=== PATIENT | male | born 1930 | race Caucasian/White ===

== ENCOUNTER 2018-03-30 11:21 | Inpatient (IN) | payer MEDICARE, MEDICAID ==
[2018-03-30 12:10] LABS: Bilirubin Negative (Negative); Blood, Urine Large (Negative); Clarity CLOUDY (Clear); Glucose, Urine (Dipstick) Negative (Negative); Leukocyte Negative (Negative); Nitrite Negative (Negative); Protein, Urine (Dipstick) 30 mg/dL (Neg-Trace); Specific Gravity, Urine 1.015 (1.002-1.036); Urobilinogen 0.2 mg/dL (0.2-1.0)
[2018-03-30 12:12] LABS: Bacteria/HPF None Seen HPF (None Seen); Hyaline Casts/LPF 0-3 HYALINE CAST LPF (0-3 Hyaline); Pathc Cast-AUWi Flag 0.72 (0-2.49); RBC/HPF GREATER THAN 50-TNTC HPF (0-3); Squamous Epithelial 0-3 HPF (0-3); WBC/HPF 0-3 HPF (0-3)
[2018-03-30 12:17] LABS: #Eosinphils 0.1 thou/uL (0.0-0.7); #Lymphocytes 0.8 thou/uL (1.20-3.40); #Neutrophils 8.1 thou/uL (1.40-6.50); %Basophils 0.2 % (0.0-1.0); %Lymphocytes 8.2 % (21.0-51.0); %Monocytes 10.1 % (0.0-10.0); %Neutrophils 80.4 % (42.0-75.0); Hemoglobin 14.9 g/dL (14.0-18.0); Mean Corpuscular HGB CONC 32.6 g/dL (32.0-36.0); Mean Corpuscular Volume 94.8 fL (78.0-98.0); Mean Platelet Volume 8.4 fL (7.4-10.4); Platelet Count 110 thou/uL (130-400); RBC Distribution Width 11.9 % (11.5-14.5); Red Blood Cell (RBC) Count 4.81 mill/uL (4.70-6.10)
[2018-03-30 12:32] LABS: ALT (SGPT) 18 U/L (8-55); AST (SGOT) 22 U/L (5-34); Albumin 3.5 g/dL (3.4-4.8); Alkaline Phosphatase 189 U/L (40-150); Anion Gap 16 mmol/L (10-20); BUN (Urea Nitrogen) 52 mg/dL (8.4-25.7); Bilirubin, Total 0.7 mg/dL (0.2-1.2); Calc. Creatinine Clearance 0 mL/min (70-130); Calcium 9.1 mg/dL (7.8-10.44); Carbon Dioxide 20 mmol/L (23-31); Chloride 103 mmol/L (98-107); Estimated GFR-MDRD 27; Glucose 226 mg/dL (83-110); Potassium 4.6 mmol/L (3.5-5.1); Protein, Total 6.5 g/dL (5.8-8.1); Sodium 134 mmol/L (136-145)
[2018-03-30] MEDS ORDERED: Acetaminophen 325 MG TAB PO PRN (15:09)
[2018-03-30] MEDS ORDERED: Dextrose 5% in Water 1,000 ML IV PRN (15:24)
[2018-03-30] MEDS ORDERED: HumaLOG 300 UNITS/3 ML VIAL SC PRN (15:24)
[2018-03-30] MEDS ORDERED: Dextrose 50% Abboject 50 ML SYRINGE SLOW IVP PRN (15:24)
--- NOTE | 2018-03-30 15:32 | ULT ---
RENAL ULTRASOUND: INDICATION: Urinary retention, acute kidney insufficiency. FINDINGS: Bilateral extrarenal pelvis is seen. There is a moderate-sized cyst of the mid left kidney, approxim ately 4 cm in diameter. An additional hypoechoic focus measuring between 1.5 and 2 cm at the left lo wer pole is demonstrated. Urinary bladder is decompressed with an indwelling catheter. IMPRESSION: 1. Bilateral extrarenal pelvis. 2. Left renal cyst. 3. Decompressed urinary bladder. POS: ISHAANK
[2018-03-30] MEDS ORDERED: Ondansetron ODT 4 MG TAB SL PRN (16:21)
[2018-03-30] MEDS ORDERED: Ondansetron PF 4 MG/2 ML Vial IVP PRN (16:21)
[2018-03-30] MEDS: Sodium Chloride 0.9% 1,000 ML IV SCH (17:07)
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
[2018-03-31] MEDS: Sodium Chloride 0.9% 1,000 ML IV SCH ×3 (03:17→20:12)
[2018-03-31 06:14] LABS: #Eosinphils 0.1 thou/uL (0.0-0.7); #Monocytes 0.9 thou/uL (0.11-0.59); #Neutrophils 5.4 thou/uL (1.40-6.50); %Basophils 0.1 % (0.0-1.0); %Eosinophils 1.8 % (0.0-10.0); %Lymphocytes 13.3 % (21.0-51.0); %Monocytes 12.3 % (0.0-10.0); %Neutrophils 72.5 % (42.0-75.0); Hemoglobin 13.4 g/dL (14.0-18.0); Mean Corpuscular HGB CONC 33.7 g/dL (32.0-36.0); Mean Corpuscular Hemoglobin 31.2 pg (27.0-31.0); Mean Corpuscular Volume 92.4 fL (78.0-98.0); Mean Platelet Volume 8.5 fL (7.4-10.4); Platelet Count 120 thou/uL (130-400); RBC Distribution Width 11.9 % (11.5-14.5); White Blood Cell (WBC) Count 7.5 thou/uL (4.8-10.8)
[2018-03-31 06:39] LABS: ALT (SGPT) 14 U/L (8-55); AST (SGOT) 17 U/L (5-34); Albumin 2.9 g/dL (3.4-4.8); Alkaline Phosphatase 144 U/L (40-150); Anion Gap 12 mmol/L (10-20); BUN (Urea Nitrogen) 26 mg/dL (8.4-25.7); Bilirubin, Total 0.7 mg/dL (0.2-1.2); Calc. Creatinine Clearance 56 mL/min (70-130); Calcium 8.1 mg/dL (7.8-10.44); Carbon Dioxide 23 mmol/L (23-31); Chloride 108 mmol/L (98-107); Estimated GFR-MDRD 72; Globulin 2.2 g/dL (2.4-3.5); Glucose 129 mg/dL (83-110); Potassium 3.8 mmol/L (3.5-5.1); Protein, Total 5.1 g/dL (5.8-8.1); Sodium 139 mmol/L (136-145)
[2018-03-31] MEDS: Tamsulosin HCl 0.4 MG CAP PO SCH (08:21)
--- NOTE | 2018-03-31 13:19 | PDOC.PN ---
- Subjective Encounter Start Date: 03/31/18 Encounter Start Time: 10:40 Non-verbal. - Objective Resuscitation Status - Order Detail: 03/30/18 15:09 Resuscitation Status Routine Resuscitation Status: FULL: Full Resuscitation MAR Reviewed: Yes Vital Signs & Weight: Vital Signs (12 hours) Temp Pulse Resp BP BP Pulse Ox 03/31/18 11:00 97.7 F 50 L 18 114/64 94 L 03/31/18 08:00 94 L 03/31/18 07:27 98.4 F 16 129/62 94 L 03/31/18 04:32 98.4 F 51 L 20 133/67 96 Weight Weight 166 lb 3.2 oz I&O: 03/30/18 03/31/18 04/01/18 06:59 06:59 06:59 Intake Total 1297 Output Total 1999 Balance -703 Result Diagrams: 03/31/18 05:07 03/31/18 05:07 Additional Labs: Accuchecks 03/31/18 03/31/18 03/30/18 11:15 04:29 19:17 POC Glucose 176 H 115 H 164 H 03/30/18 18:21 POC Glucose 139 H Phys Exam - Physical Examination Constitutional: NAD Very pleasant, profound dementia. Non-verbal. Respiratory: no wheezing, no rales, no rhonchi, clear to auscultation bilateral Cardiovascular: RRR, no significant murmur Gastrointestinal: soft, non-tender, no distention, positive bowel sounds Musculoskeletal: no edema Neurological: non-focal Skin: normal turgor Dx/Plan (1) Urinary retention Code(s): R33.9 - RETENTION OF URINE, UNSPECIFIED Status: Acute Comment: Relieved with Cheung. >2 L of urine evacuated with catheter placement. Prostate not enlarged on exam in ED. Urine did not appear infected. Will consult Urology. Talked to Urology. Will need Cheung for a couple of weeks. (2) Abdominal pain Code(s): R10.9 - UNSPECIFIED ABDOMINAL PAIN Status: Resolved Comment: Secondary to bladder distention. Resolved. (3) Acute renal failure Status: Acute Comment: Secondary to ROJAS and obstsructive uropathy. Improved with drainage of the bladder and fluids. Recheck in a.m. (4) Dementia Code(s): F03.90 - UNSPECIFIED DEMENTIA WITHOUT BEHAVIORAL DISTURBANCE Status: Chronic (5) Hypertension Code(s): I10 - ESSENTIAL (PRIMARY) HYPERTENSION Status: Acute Comment: Carries this diagnosis, but is not on treatment. BP improved with relief of the urine retention. - Plan * above
[2018-03-31] MEDS ORDERED: Sodium Chloride 0.9% 1,000 ML IV SCH (20:33)
--- NOTE | 2018-03-31 21:41 | PRG ---
DATE OF SERVICE: 03/31/2018 SUBJECTIVE: The patient was seen and examined, seems to be doing much better. Noted with the following. OBJECTIVE: VITAL SIGNS: Afebrile, temperature 98.2, pulse 60, respiratory rate of 12, O2 saturation of 93% to 96% with a blood pressure of 162/57. HEENT: Examination is unremarkable. Moist oral mucosa. NECK: Supple. No conjunctival injection or icterus. CARDIOVASCULAR SYSTEM: First and second heart sounds were heard. RESPIRATORY SYSTEM: Clear to auscultation. DIGESTIVE SYSTEM: Reviewed. Benign abdomen with positive bowel sounds. EXTREMITIES: No peripheral edema. SKIN: No new gross rash. LYMPHATICS: No peripheral lymphadenopathy. LABORATORY INVESTIGATION: Showed a creatinine down to 0.9, now with BUN of 26. IMPRESSION: 1. Acute kidney injury in the context of obstructive uropathy, much improved, status post relieve of obstruction. 2. Further management will be dependent on the clinical course. 3. We will deescalate IV fluids. At this point, I am possibly discontinuing by tomorrow. Job ID: [id number]
--- NOTE | 2018-03-31 23:23 | CON ---
DATE OF CONSULTATION: 03/31/2018 REASON FOR CONSULTATION: Urinary retention. HISTORY OF PRESENT ILLNESS: Mr. Rice is an 88-year-old gentleman admitted to the hospital on 03/30/2018 for abdominal. The patient was noted to be in urinary retention. A Tinoco catheter was placed. He had 2250 mL of urine output after catheter placement. The abdominal pain resolved after placement of the Tinoco catheter. The patient is unable to give significant history because of dementia. All subsequent obtained from chart PAST MEDICAL HISTORY: Includes hypertension, abnormal heart rhythm, osteoarthritis, and chronic ischemic heart disease (all obtained from chart). PAST SURGICAL HISTORY: Pacemaker. SOCIAL HISTORY: The patient lives at a nursing facility and no known family contact has been reachable. FAMILY HISTORY: Unobtainable. REVIEW OF SYSTEMS: Unobtainable. CURRENT MEDICATIONS: 1. Mucinex. 2. Tylenol p.r.n. ALLERGIES: NO KNOWN DRUG ALLERGIES. PHYSICAL EXAMINATION: GENERAL: He is awake and alert. He is in no distress at this time. The patient appears younger than his stated age. VITAL SIGNS: Blood pressure 148/82, pulse 82, respiratory rate 16. HEENT: Normocephalic, atraumatic. NECK: Supple. No masses. CHEST: Clear to auscultation. CARDIOVASCULAR: Regular rate and rhythm. ABDOMEN: Soft, nontender. No palpable masses. LABORATORY DATA: On admission, creatinine 2.3. IMPRESSION: This patient has urinary retention diagnosed during work up of abdominal pain. Noted to have a bladder of over 2 L. He will need at least a week's worth of bladder decompression before voiding trial. He has been started on Flomax. I anticipate his creatinine will return to normal with the Tinoco drainage. As far as detention treatment, the patient certainly is not bothered by his Tinoco catheter and this is an option for him if retention recurs. If he fails to resume voiding after a period of bladder decompression and flomax, surgical therapy is an option though the patient is not able to give consent and attempts to communicate with any family has been unsuccesful up to this point. RECOMMENDATIONS: 1. Tinoco to gravity for at least 1 week. 2. Voiding trial in >1 week - this can be done at the facility - replace the tinoco if patient not able tovoid within 8 hours.. 3. Agree with Flomax. Job ID: [id number] [facility]
[2018-04-01 08:06] LABS: ALT (SGPT) 13 U/L (8-55); AST (SGOT) 18 U/L (5-34); Albumin 2.8 g/dL (3.4-4.8); Alkaline Phosphatase 134 U/L (40-150); Anion Gap 10 mmol/L (10-20); BUN (Urea Nitrogen) 16 mg/dL (8.4-25.7); Bilirubin, Total 0.7 mg/dL (0.2-1.2); Calc. Creatinine Clearance 68 mL/min (70-130); Calcium 8.1 mg/dL (7.8-10.44); Carbon Dioxide 23 mmol/L (23-31); Chloride 110 mmol/L (98-107); Estimated GFR-MDRD 89; Globulin 2.2 g/dL (2.4-3.5); Glucose 128 mg/dL (83-110); Potassium 3.7 mmol/L (3.5-5.1); Sodium 139 mmol/L (136-145)
[2018-04-01] MEDS: Tamsulosin HCl 0.4 MG CAP PO SCH (08:24)
[2018-04-01 08:46] LABS: INR-International Normal Ratio 1.1; PTT 32.9 SEC (22.9-36.1); Prothrombin Time 14.6 SEC (12.0-14.7)
[2018-04-01 11:34] VITALS: BP 150/68; TEMP 97.8
--- NOTE | 2018-04-01 21:17 | CON ---
DATE OF CONSULTATION: CONSULTING PHYSICIAN: Kiarra Goodwin MD REQUESTING PHYSICIAN: ER physician. REASON FOR CONSULTATION: Acute kidney injury as well as urinary retention. IMPRESSION: 1. Acute on chronic kidney disease, this is likely cause because of urinary retention. 2. Obstructive uropathy. The patient may benefit from urologic workup and evaluation. PLAN: 1. Cheung decompression of the bladder, but we will keep an eye on this patient as this may lead to hematuria if not controlled. 2. The patient may benefit from relatively hypotonic fluid but for now, given the sodium level of 134, we will continue with current IV fluid resuscitation. 3. Renally dose medications and avoid potentially nephrotoxic agents. HISTORY OF PRESENT ILLNESS: An 88-year-old gentleman who was sent to us with abdominal discomfort. The patient was evaluated and noted to have significant urinary retention, deployment of Cheung catheter, 2 L of bloody urine was noted. Otherwise, the patient denies any other symptoms. PAST MEDICAL HISTORY: Significant for Alzheimer disease and dementia. MEDICATIONS: Medications were reviewed and as documented on [facility]. I could not get much of any history from this patient. REVIEW OF SYSTEMS: Highly limited. FAMILY HISTORY: Could not be obtained. SOCIAL HISTORY: No alcohol, no illicit drug use. ALLERGIES: NO KNOWN DRUG ALLERGIES. PHYSICAL EXAMINATION: noted to be alert. No lateralizing signs. LYMPHATICS: No peripheral lymphadenopathy. VITAL SIGNS: Reveals a blood pressure of 159/87, pulse , respiratory rate of 16, O2 saturations of SUMMARY: This is an 88-year-old gentleman who was brought in here with abdominal discomfort, noted with significant obstructive uropathy. Thank you for this consultation. We will follow with you. Job ID: [id number]
--- NOTE | 2018-04-03 11:42 | DIS ---
DATE OF ADMISSION: 03/30/2018 DATE OF DISCHARGE: 04/01/2018 DISCHARGE DIAGNOSES: 1. Urinary retention. 2. Acute renal failure. 3. Abdominal pain. 4. Dementia. 5. Hypertension. 6. Hyperglycemia. HISTORY OF PRESENT ILLNESS: The patient is an 88-year-old male with a history of significant dementia to the degree that he is generally nonverbal, but very pleasant. The patient lives in a nursing facility where he was noted to have abdominal pain and been found to have significant right lower quadrant abdominal pain and tenderness and distention. He was subsequently sent to the emergency department. In the emergency department, the patient was noted to have distended bladder and a Cheung catheter was placed. At that time, 2250 mL of urine was evacuated over a couple of hours. The patient's workup also included elevation in his BUN and creatinine at 52 and 2.3, which were above the patient's normal baseline. He also had hyperglycemia at 226. The patient was admitted to the hospital with some IV fluids and the Cheung was kept in place. By the following day, his BUN and creatinine had decreased to 26 and 0.99, and his blood sugars had come down to relatively normal numbers. On the subsequent day, BUN was 16 and creatinine was 0.82, and his blood sugars down to 119. He was seen in consultation by Nephrology and Urology. The urologist felt that given the severe nature of the bladder distention, the patient needed to keep the Cheung catheter in for at least 1 week. The patient appeared to be feeling well, eating well, and at his baseline, and was felt to be stable for discharge. PHYSICAL EXAMINATION: VITAL SIGNS: On the day of discharge, temperature is 97.8, pulse 51, respirations 18, O2 saturation 93% on room air, BP 150/68. GENERAL: The patient again was nonverbal, but alert, awake, pleasant, and appeared to be in no distress. HEART: Regular rate and rhythm without murmurs, gallops, or rubs. LUNGS: Clear bilaterally. ABDOMEN: Soft, nontender, and nondistended. EXTREMITIES: Warm and dry without edema. DISPOSITION: The patient is discharged back to the long-term half-way facility. His activity is as tolerated. He is to be on a regular diet. MEDICATIONS: He will be on tamsulosin 0.4 mg daily. He will continue with his other usual home medications, including acetaminophen p.r.n., Aricept 5 mg at bedtime, Namenda 5 mg daily, Mucinex DM 1 p.o. q.12 hours, multivitamin 1 p.o. daily. FOLLOWUP: He is to have followup with his PCP at the nursing facility and can return to the emergency department at any time. The patient is to have the Cheung catheter removed in 1 week. If he has any evidence of difficulty voiding or urinary retention, he can follow up with Dr. Lopez at that time. Job ID: [id number]
--- NOTE | 2018-04-04 14:56 | EKG ---
Test Reason : Blood Pressure : / mmHG Vent. Rate : 065 BPM Atrial Rate : 050 BPM P-R Int : 000 ms QRS Dur : 104 ms QT Int : 408 ms P-R-T Axes : 000 -60 097 degrees QTc Int : 424 ms Junctional rhythm Left axis deviation Anteroseptal infarct , age undetermined Abnormal ECG Confirmed by KAREN NAZARIO D.O. ([id number]), offline editor KYREE VAZQUEZ ([id number]) on 04/04/2018 2:56:40 PM Referred By: Confirmed By:KAREN NAZARIO D.O.
== END 2018-04-01 15:47 | DRG 699 ==
LOC: ERS 11:21 → T4-B 14:24
PROVIDERS: ADMIT Internal Medicine; ATTEND Internal Medicine
DX: N13.9 Obstructive and reflux uropathy, unspecified (principal); N17.9 Acute kidney failure, unspecified; E87.2 Acidosis; R33.8 Other retention of urine; N32.0 Bladder-neck obstruction; R73.9 Hyperglycemia, unspecified; G30.9 Alzheimer's disease, unspecified; F02.80 Dementia in other diseases classified elsewhere, unspecified severity, without behavioral disturbance, psychotic disturbance, mood disturbance, and anxiety; I10 Essential (primary) hypertension; D69.6 Thrombocytopenia, unspecified; Z95.0 Presence of cardiac pacemaker
CPT/HCPCS: 36415; 36416; 51702; 76770; 80053; 81003; 81015; 85025; 85610; 85730; 93005

== ENCOUNTER 2018-05-24 11:36 | Inpatient (IN) | payer MEDICARE, MEDICAID ==
[2018-05-24 12:08] LABS: Bilirubin Negative (Negative); Blood, Urine Large (Negative); Clarity TURBID (Clear); Glucose, Urine (Dipstick) Negative (Negative); Leukocyte Large (Negative); Nitrite Positive (Negative); Protein, Urine (Dipstick) 300 mg/dL (Neg-Trace); Specific Gravity, Urine 1.016 (1.002-1.036); pH, Urine 8.5 (5.0-9.0)
--- NOTE | 2018-05-24 12:26 | CT ---
BRAIN CT WITHOUT IV CONTRAST: Date: 05/24/18 HISTORY: Worsening altered mental status. COMPARISON: 04/28/14. FINDINGS: There is marked atrophy and chronic white matter ischemic change. There is some artifact from the pat ient's adjacent hand. No focal mass or midline shift. No intra or extra-axial hemorrhage. There is mo tion artifact. IMPRESSION: Overall stable atrophy and chronic white matter ischemic change. No mass or bleed, or other acute pro cess. POS: LYNN
[2018-05-24 12:32] LABS: Pathc Cast-AUWi Flag 1.87 (0-2.49); Squamous Epithelial 0-3 HPF (0-3); Yeast-AUWi Flag 284.3 (0-25.0)
[2018-05-24 12:50] LABS: Bacteria/HPF 4+ HPF (None Seen); Hyaline Casts/LPF 0-3 HYALINE CAST LPF (0-3 Hyaline); Yeast-All Forms None Seen HPF (None Seen)
--- NOTE | 2018-05-24 12:54 | RAD ---
PORTABLE CHEST: HISTORY: Altered mental status. FINDINGS: Left ICD. Left shoulder arthroplasty. Severe arthrosis right glenohumeral joint. Minimal increased density in the left retrocardiac region partial obliterating the left hemidiaphragm raising concern for minimal left lower lobe pneumonia, pneumonitis, and/or subsegmental atelectasis. The remainder o f the left lung and the right lung appear clear. IMPRESSION: Minimal increased density in the left retrocardiac region raising concern for minimal early pneumonia or pneumonitis or possibly subsegmental atelectasis. POS: LYNN
[2018-05-24 13:08] LABS: Hemoglobin 14.7 g/dL (14.0-18.0); Mean Corpuscular Hemoglobin 29.6 pg (27.0-31.0); Mean Corpuscular Volume 92.5 fL (78.0-98.0); Mean Platelet Volume 8.1 fL (7.4-10.4); Platelet Count 181 thou/uL (130-400); RBC Distribution Width 12.5 % (11.5-14.5); Red Blood Cell (RBC) Count 4.97 mill/uL (4.70-6.10); White Blood Cell (WBC) Count 24.6 thou/uL (4.8-10.8)
[2018-05-24 13:32] LABS: ALT (SGPT) 23 U/L (8-55); AST (SGOT) 29 U/L (5-34); Albumin 3.3 g/dL (3.4-4.8); Alkaline Phosphatase 273 U/L (40-150); Anion Gap 22 mmol/L (10-20); BUN (Urea Nitrogen) 95 mg/dL (8.4-25.7); Bilirubin, Total 0.6 mg/dL (0.2-1.2); CK (CPK) 115 U/L (30-200); Calc. Creatinine Clearance 0 mL/min (70-130); Carbon Dioxide 15 mmol/L (23-31); Chloride 105 mmol/L (98-107); Estimated GFR-MDRD 16; Globulin 3.6 g/dL (2.4-3.5); Glucose 192 mg/dL (83-110); Potassium 4.5 mmol/L (3.5-5.1); Protein, Total 6.9 g/dL (5.8-8.1); Sodium 137 mmol/L (136-145)
[2018-05-24 14:00] LABS: Band 21 % (5-11); Lymphocytes 1 % (21-51); MDiff Complete? YES; Monocytes 2 % (0-10); Neutrophil 76 % (42-75); Platelet Morphology Comment Appears Adequate
[2018-05-24] MEDS ORDERED: VANC / ABX IVPB PRN (14:58)
[2018-05-24] MEDS ORDERED: Vancomycin HCl 1 GM in Premix Bag 1 BAG IVPB SCH ×2 (15:00→22:00)
[2018-05-24] MEDS ORDERED: Senokot S 8.6-50 MG TAB PO PRN (15:01)
[2018-05-24] MEDS ORDERED: Acetaminophen 650 MG Suppository PR PRN (15:01)
[2018-05-24] MEDS ORDERED: Acetaminophen 325 MG TAB PO PRN (15:01)
--- NOTE | 2018-05-24 17:15 | HP ---
PRIMARY CARE PROVIDER: Dr. Loida Robin. CHIEF COMPLAINT: Altered mental status. HISTORY OF PRESENT ILLNESS: Mr. Rice is a pleasant 88-year-old gentleman, who was seen at [facility] on May 24, 2018, following transfer from [facility]. The patient is unable to provide any history. Collateral history was obtained from review of medical records and discussion with emergency room physician. Mr. Rice was hospitalized at [facility] from April 01, 2018, for urinary retention and acute kidney injury. He was initiated on Flomax at that time. He was reportedly found to have worsening altered mental status. He is normally alert and oriented x2 at baseline, pleasant and able to speak, but is now only moaning. He also reportedly had abnormal labs and urinary retention. He had a Cheung catheter inserted on May 20, 2018. He was brought to the emergency room because of above complaints. REVIEW OF SYSTEMS: Could not be completed because of the patient's noncooperation. PAST MEDICAL HISTORY: Alzheimer's dementia, hypertension, permanent pacemaker placement, osteoarthritis, chronic ischemic heart disease, and urinary retention. PAST SURGICAL HISTORY: Pacemaker. SOCIAL HISTORY: No history of tobacco use, alcohol use, or recreational drug use. FAMILY HISTORY: Could not be obtained. CODE STATUS: The patient has an [id number] DNR. This was confirmed by contacting his nursing facility. There is a phone number listed for a child, but that number is not working. ALLERGIES: No known drug allergies. CURRENT MEDICATIONS: Guaifenesin p.r.n., multivitamins one tablet daily, Tylenol p.r.n., Aricept 5 mg at bedtime, Namenda 5 mg daily, and tamsulosin 0.4 mg daily. PHYSICAL EXAMINATION: GENERAL: On examination, Mr. Rice is restless, moaning. VITAL SIGNS: Blood pressure is 117/54, pulse 85, respiratory rate 18, and oxygen saturation 100% on room air. EYES: No scleral icterus, no conjunctival pallor. ENT: Dry mucosal membranes, no oropharyngeal erythema or exudates. NECK: Supple, nontender, trachea is midline. RESPIRATORY: Accessory muscles of breathing are not active. Chest wall movements are symmetric bilaterally. Lungs are clear to auscultation without wheeze, rhonchi, or crepitations. CARDIOVASCULAR: S1 and S2 are heard, irregular. Peripheral pulses palpable. No carotid bruit. No pericardial rub. ABDOMEN: Soft, upper abdominal and suprapubic tenderness. No guarding or rigidity. Bowel sounds heard. NEUROLOGIC: Full neurologic examination not possible secondary to the patient's noncooperation. No facial droop. Deep tendon reflexes 2+. MUSCULOSKELETAL: The patient is moving all 4 extremities. SKIN: Erythematous lesion over his chest with irregular surface. LYMPHATIC: No cervical lymphadenopathy. PSYCHIATRIC: Unable to assess mood, affect or orientation to person, place, or time. LABORATORY DATA: Mr. Rice's labs and investigations were reviewed. I reviewed his electrocardiogram, which shows atrial fibrillation, no ST changes to suggest an acute coronary syndrome. I also reviewed his chest x-ray, which does not show any pulmonary infiltrates. Noncontrast CT scan of the brain was unremarkable, without any mass or bleed. He has stable atrophy and chronic white matter ischemic change. He has leukocytosis with 24,600 white cells, of which 76% are neutrophils and 21 % are band neutrophils. Hemoglobin and platelet counts are normal. He has normal sodium, normal potassium, elevated blood urea nitrogen of 95, elevated creatinine of 3.72, creatinine was 4.88 yesterday and 0.82 on April 01, 2018. Alkaline phosphatase is elevated at 273, it was 283 yesterday, and 134 on April 01, 2018. Albumin is mildly decreased at 3.3. Carbon dioxide is decreased at 15 and anion gap is elevated at 22. Lactic acid level is normal at 2.0. Urinalysis is positive for nitrite and leukocyte esterase. ASSESSMENT AND PLAN: Mr. Rice is a pleasant 88-year-old gentleman, who was seen at [facility] on May 24, 2018. His problem list includes: 1. Acute metabolic encephalopathy: Mr. Rice is presenting with acute metabolic encephalopathy, likely secondary to uremia and sepsis. He will be admitted to the hospital for further management. 2. Sepsis: Most likely secondary to urinary tract infection. The patient is being started on antibiotics. 3. Urinary tract infection: The patient has received vancomycin and ceftriaxone in the emergency room. I will continue vancomycin and start him on meropenem to cover for extended-spectrum beta-lactamases positive organisms. 4. Acute kidney injury: Most likely prerenal, since the patient already has a Cheung catheter. He is clinically dehydrated. We will provide intravenous hydration and recheck creatinine level. 5. Dementia: We will continue Aricept and Namenda. 6. Urinary retention: Continue Hceung catheter and Flomax. Many thanks for allowing me to participate in your patient's care. Please feel free to contact me with any questions or concerns. LEVEL OF RISK: High. LEVEL OF COMPLEXITY: High. Job ID: [id number] MTDD
[2018-05-24] MEDS ORDERED: cefTRIAXone\\ROCEPHIN 2 GM VIAL ONE (17:43)
[2018-05-24] MEDS ORDERED: Gentamicin 80 MG/2 ML VIAL ONE (17:47)
[2018-05-24] MEDS ORDERED: Piperacillin/Tazobactam 2.25 GM in Sodium Chloride 0.9% 100 ML IVPB SCH (18:00)
[2018-05-24] MEDS ORDERED: Meropenem 1 GM in Sodium Chloride 0.9% 100 ML IVPB SCH ×4 (18:00→22:00)
--- NOTE | 2018-05-24 18:43 | CT ---
NONCONTRAST CT ABDOMEN AND PELVIS: 05/24/18 HISTORY: Abdominal pain. Patient combative. Worsening altered mental status. Urinary retention. COMPARISON: 09/15/14. FINDINGS: There is partial visualization of a cardiac pacemaking leads. Trace pericardial effusion is present. There is tiny right pleural effusion with atelectasis at the right lung base. There is linear densiti es at the left lung base which also may be related to atelectasis and there is also respiratory motio n limiting adequate evaluation. The gallbladder is distended with gallbladder calculi noted. Gallbladder measures 11.3 cm in length x 6.2 cm in diameter. There is adjacent mild inflammatory changes seen at the posterior and inferior a spect of the gallbladder. No appreciable gallbladder wall thickening is present, but cholecystitis in the correct clinical scenario is a possibly. The liver, spleen, pancreas, bilateral adrenal glands, and right kidney demonstrate a grossly normal nonenhanced CT appearance. There is question of increased density material within the region of the l eft renal collecting system and to a lesser extent on the right. Filling defect within the extrarenal left renal pelvis cannot be entirely excluded and followup postcontrast imaging including delayed im ages is recommended for further evaluation. As noted on prior exam on 09/15/14, there are left renal c ysts present in the mid portion inferior pole left kidney. A Cheung catheter is present in a decompressed urinary bladder. Postsurgical changes left hip are agai n seen resulting in significant streak artifact in the pelvis. There is question of a trace amount of free fluid in the lower posterior pelvis, and again there is s ignificant artifact which precludes adequate evaluation. Prominent vascular calcifications are seen in the abdominal aorta and involving the iliac arteries. There are multiple sclerotic lesions seen throughout the vertebral bodies, involving the pelvis as we ll as involving the visualized proximal right hip consistent with diffuse osseous metastatic disease. Largest sclerotic lesions are seen at T12 and L4 vertebral bodies. Large sclerotic lesion also seen involving the posterior acetabulum. Multilevel degenerative changes are seen in the spine with severe right hip osteoarthritis present. A few sclerotic lesions are seen in right sided ribs. There is par tial visualization of a small sclerotic lesion inferior aspect of the left aspect of the sternum. IMPRESSION: 1. Cholelithiasis with gallbladder distention and mild adjacent inflammatory changes seen meal cooker ior to the gallbladder. Findings are worrisome for cholecystitis especially in the correct clinical s cenario. 2. Question of increased density filling defect within the left renal pelvis. A lesion in this r egion cannot be entirely excluded, and followup CT examination with IV contrast including delayed wilver ges is suggested depending on patient's renal function. 3. Left renal cysts. 4. Diffuse sclerotic osseous metastatic disease. 5. Degenerative changes as well as postsurgical changes of the lumbar spine. Findings discussed with Dr. Boland on 05/24/18 at 1651 hours. CODE CR. 1.
[2018-05-24] MEDS: Sodium Chloride 0.9% 1,000 ML IV SCH (19:41)
[2018-05-24] MEDS: Donepezil HCl 10 MG TAB PO SCH (19:41)
[2018-05-24 19:43] VITALS: BMI 25.2
[2018-05-24] MEDS: Haloperidol Lactate 5 MG/ML VIAL SLOW IVP SCH ×2 (20:11→20:34)
[2018-05-24] MEDS ORDERED: Vancomycin HCl 1.25 GM in Sodium Chloride 0.9% 250 ML 250 ML IVPB SCH (22:00)
[2018-05-24] MEDS ORDERED: HOLD VANCOMYCIN FOR LEVEL >20 FS SCH (22:00)
[2018-05-24] MEDS ORDERED: Vancomycin HCl 500 MG in Sodium Chloride 0.9% 100 ML IVPB SCH (22:00)
[2018-05-24] MEDS ORDERED: Vancomycin HCl 750 MG in Sodium Chloride 0.9% 250 ML 250 ML IVPB SCH (22:00)
[2018-05-24] MEDS ORDERED: Prevnar 13-Val Conj/PF 0.5 ML SYRINGE IM ONE (23:45)
--- NOTE | 2018-05-25 04:09 | HP ---
HISTORY OF PRESENT ILLNESS: Erick Rice is an 88-year-old male patient, who presents to the emergency room from the detention. He apparently has been experiencing pain, not eating. He is demented and not communicative. He was hospitalized in 03/2018 with urosepsis, retention. He saw Dr. Lopez during that hospitalization. He underwent a CAT scan of the abdomen and pelvis as well as CT scan of the brain and a chest x-ray. CT of the brain reveals chronic changes, no acute changes. Abdomen and pelvis CAT scan reveals distended gallbladder, multiple gallstones. Liver function tests are normal. White count is 24,000 and hemoglobin 14. Urinalysis reveals positive nitrite and pyuria. I have been asked by Medical Service to see him regarding his gallbladder. I have tried multiple phone numbers listed in the demographics of the computer record and none of them are working or available. ALLERGIES: NONE LISTED. SOCIAL HISTORY: Tobacco, not reported. Alcohol, not reported. MEDICATIONS: Listed from the detention; 1. Flomax 0.4 mg daily. 2. Multivitamins daily. 3. Namenda 5 mg daily. 4. Aricept 5 mg at bedtime. 5. Mucinex. 6. Tylenol. 7. He has been started on meropenem in the hospital. I am unable to obtain a history from him, but looking at the past records, recent hospitalization dated 03/2018. PAST MEDICAL HISTORY: Alzheimer's. He has a pacemaker. It is listed he is having osteoarthritis and chronic ischemic heart disease, UTIs, and urosepsis. PAST SURGICAL HISTORY: Pacemaker. PHYSICAL EXAMINATION: HEENT: The patient does not communicate. He speaks and acts out, makes unintelligible noises. LUNGS: Clear to auscultation. CARDIAC: Regular rate and rhythm. ABDOMEN: Nondistended. Tender right upper quadrant with mild guarding. EXTREMITIES: Unremarkable. ASSESSMENT AND PLAN: 1. Possible cholecystitis. Liver function tests are normal. He certainly has a very large distended gallbladder with multiple gallstones seen on CAT scan. It would be appropriate to perform a laparoscopic cholecystectomy. Percutaneous drainage is probably not appropriate. Due to his mental status, he would continue to pull out the tube. I have tried multiple phone numbers to discuss with family. None available. A similar situation was documented on recent past hospitalization. Plan at this time is to plan laparoscopic cholecystectomy tomorrow if consent can be obtained. He is a DNR. 2. Urinary tract infection. 3. Severe dementia. 4. Coronary artery disease. Job ID: [id number]
[2018-05-25] MEDS: Meropenem 500 MG in Sodium Chloride 0.9% 100 ML IVPB SCH ×2 (05:23→17:43)
[2018-05-25 07:03] LABS: Hemoglobin 14.6 g/dL (14.0-18.0); Mean Corpuscular HGB CONC 32.4 g/dL (32.0-36.0); Mean Corpuscular Hemoglobin 30.1 pg (27.0-31.0); Mean Corpuscular Volume 92.9 fL (78.0-98.0); Mean Platelet Volume 8.1 fL (7.4-10.4); Platelet Count 179 thou/uL (130-400); RBC Distribution Width 12.5 % (11.5-14.5); Red Blood Cell (RBC) Count 4.84 mill/uL (4.70-6.10); White Blood Cell (WBC) Count 20.3 thou/uL (4.8-10.8)
--- NOTE | 2018-05-25 07:44 | PRG ---
DATE OF SERVICE: 05/25/2018 SUBJECTIVE: Mr. Rice this morning is at his baseline, as he was admitted, from nurses report, he has been very agitated, crying out and what they feel is pain. He speaks unintelligible words. OBJECTIVE: On exam, he seemed to have tenderness in his right upper quadrant. CAT scan reveals gallstones, inflammatory changes of the gallbladder. The patient has a chronic indwelling Cheung catheter and cultures obtained in urine from his chronically catheterized bladder reveals Proteus mirabilis. He has not had a fever. This morning, his white count is down from 24 to 20,000. Hemoglobin 14. ASSESSMENT AND PLAN: I have tried all available phone numbers in the chart for family. There is report from past hospitalization that there were no family members available. Nursing has been contacted. There are no family members available. My recommendation is for laparoscopic cholecystectomy. The patient cannot give informed consent. He will require 2 physicians or protocol per hospitalist for obtaining consent for both surgery and anesthesia for the operation. We will go through this process this morning and plan laparoscopic cholecystectomy later this morning once consents were obtained. Job ID: [id number]
[2018-05-25 08:05] LABS: Anion Gap 23 mmol/L (10-20); BUN (Urea Nitrogen) 92 mg/dL (8.4-25.7); Calc. Creatinine Clearance 18 mL/min (70-130); Calcium 9.1 mg/dL (7.8-10.44); Carbon Dioxide 16 mmol/L (23-31); Chloride 107 mmol/L (98-107); Estimated GFR-MDRD 20; Glucose 178 mg/dL (83-110); Potassium 4.4 mmol/L (3.5-5.1); Sodium 142 mmol/L (136-145)
[2018-05-25 08:19] LABS: Band 16 % (5-11); Burr Cells SLIGHT = 2-5 cells (100X) (0-1/hpf); Lymphocytes 4 % (21-51); MDiff Complete? YES; Neutrophil 80 % (42-75); Polychromasia SLIGHT = 2-3 cells (100X) (0-2/hpf)
[2018-05-25] MEDS: Multivitamin W/ Minerals 1 TAB PO SCH (08:48)
[2018-05-25] MEDS: Tamsulosin HCl 0.4 MG CAP PO SCH (08:48)
[2018-05-25] MEDS: Sodium Chloride 0.9% 1,000 ML IV SCH (08:50)
--- NOTE | 2018-05-25 12:31 | PDOC.PN ---
- Subjective Encounter Start Date: 05/25/18 Encounter Start Time: 11:00 Subjective: Confused. - Objective Resuscitation Status - Order Detail: 05/24/18 15:01 Resuscitation Status Routine Resuscitation Status: DNAR: NO Resuscitation Discussed with: confirmed with detention facility Vital Signs & Weight: Vital Signs (12 hours) Temp Pulse Resp BP Pulse Ox 05/25/18 11:15 98.3 F 95 18 137/75 94 L 05/25/18 08:02 99.8 F H 95 18 143/79 H 94 L 05/25/18 08:00 94 L 05/25/18 05:21 97.5 F L 79 16 133/67 96 05/25/18 01:34 97.9 F 79 16 127/76 96 Weight Weight 156 lb 12.8 oz I&O: 05/24/18 05/25/18 05/26/18 06:59 06:59 06:59 Output Total 900 Balance -900 Result Diagrams: 05/25/18 06:42 05/25/18 06:42 Phys Exam - Physical Examination Neck: no JVD Respiratory: clear to auscultation bilateral Cardiovascular: RRR Gastrointestinal: soft (RUQ tenderness.) Musculoskeletal: no edema Neurological: moves all 4 limbs Dx/Plan (1) Sepsis Code(s): A41.9 - SEPSIS, UNSPECIFIED ORGANISM Status: Acute Comment: BxC is growing proteus species. On Meropenen. Possibly from uti Vs cholecystitis. (2) UTI (urinary tract infection) Status: Acute Plan: as mentioned above.. (3) Acute renal failure Status: Acute Comment: Improving f/u chemistry. (4) Hypertension Code(s): I10 - ESSENTIAL (PRIMARY) HYPERTENSION Status: Acute Comment: Carries this diagnosis, but is not on treatment. BP improved with relief of the urine retention. (5) Urinary retention Code(s): R33.9 - RETENTION OF URINE, UNSPECIFIED Status: Acute Comment: Relieved with Cheung. >2 L of urine evacuated with catheter placement. Prostate not enlarged on exam in ED. Urine did not appear infected. Will consult Urology. Talked to Urology. Will need Cheung for a couple of weeks. (6) Dementia Code(s): F03.90 - UNSPECIFIED DEMENTIA WITHOUT BEHAVIORAL DISTURBANCE Status: Chronic (7) Cholecystitis Code(s): K81.9 - CHOLECYSTITIS, UNSPECIFIED Status: Acute (8) Cholecystitis Code(s): K81.9 - CHOLECYSTITIS, UNSPECIFIED Status: Acute Plan: For cholecystectomy.. - Plan * .
[2018-05-25] MEDS ORDERED: Fentanyl 100 MCG/2 ML VIAL ONE ×3 (12:50→14:55)
[2018-05-25] MEDS ORDERED: Bupivacaine HCl 0.5%/Epinephrine 1:200,000/PF 30 ml Vial ONE (13:31)
[2018-05-25] MEDS ORDERED: Rocuronium Bromide 10 MG/ML (10ML VIAL) ONE (13:47)
[2018-05-25] MEDS ORDERED: PROPOFOL 200 MG/20 ML VIAL ONE (13:47)
[2018-05-25] MEDS ORDERED: ePHEDrine 50 MG/ML VIAL ONE (13:47)
[2018-05-25] MEDS ORDERED: PHENYLEPHRINE-NS 100 MCG/ML 10 ML SYRINGE ONE (13:47)
[2018-05-25] MEDS ORDERED: Lidocaine 1% PF 5 ML VIAL ONE (13:47)
[2018-05-25] MEDS ORDERED: Acetaminophen 500 MG TAB PO PRN (15:00)
[2018-05-25] MEDS ORDERED: traMADol HCl 50 MG TAB PO PRN ×2 (15:00→15:05)
[2018-05-25] MEDS ORDERED: Ondansetron HCl/PF 4 MG/2 ML Vial IVP PRN (15:22)
--- NOTE | 2018-05-25 15:42 | OP ---
DATE OF PROCEDURE: 05/25/2018 PREOPERATIVE DIAGNOSES: Cholecystitis, cholelithiasis, severe dementia. Behavioral suggesting pain and cholecystitis. CAT scan suggesting inflammatory changes and cholecystitis, and distended gallbladder. POSTOPERATIVE DIAGNOSES: Cholecystitis, cholelithiasis, severe dementia. Behavioral suggesting pain and cholecystitis. CAT scan suggesting inflammatory changes and cholecystitis, and distended gallbladder Normal-appearing gallbladder, non-thickened wall, nonedematous, but multiple stones. PROCEDURE PERFORMED: Laparoscopic video cholecystectomy. ANESTHESIA: General, local of 0.5% Marcaine with epinephrine 30 mL. DESCRIPTION OF PROCEDURE: The patient was taken to the operating room, where under general anesthesia, abdomen was clipped of hair, prepared with ChloraPrep and draped in routine fashion. Local anesthetic of 0.5% Marcaine with epinephrine was infiltrated in the skin and subcutaneous tissue about each port site, 30 mL of total volume was used. Infraumbilical incision was made, pneumoperitoneum to 15 mmHg obtained with a Veress needle, replaced with a 5 port, laparoscope was inserted. Right subxiphoid incision was made and an 11 port was placed. Right subcostal incision was made, midclavicular and anterior axillary lines and the 5 ports placed. Liver appeared to be normal. Gallbladder was distended but not inflamed. Wall was not thickened. There was no edema. Fundus was grasped at the cephalad. Infundibulum was grasped and reflected laterally. Cystic artery and duct dissected free. Critical view was obtained. Cystic artery and duct double clipped proximally and divided. Gallbladder was dissected free from the liver bed obtaining good hemostasis prior to division of the final peritoneal attachments. Gallbladder and contents were removed and submitted to Pathology. Good hemostasis was assured with cautery. Irrigant and pneumoperitoneum evacuated. All instruments were removed, and all skin incisions were approximated with subdermal 4-0 Monocryl and Bronson glue applied. Job ID: [id number]
[2018-05-25] MEDS: Sodium Chloride 0.45% 1,000 ML IV SCH ×2 (16:13→20:41)
[2018-05-25] MEDS: Phenazopyridine HCl 97.5 MG TABLET PO PRN (17:43)
[2018-05-25] MEDS: Donepezil HCl 10 MG TAB PO SCH (20:37)
[2018-05-25] MEDS: guaiFENesin/DM ER PO SCH (20:37)
[2018-05-25] MEDS: Enoxaparin Sodium 30 MG/0.3 ML SYRINGE SC SCH (20:38)
[2018-05-25] MEDS: traMADol HCl 50 MG TAB PO PRN (22:33)
[2018-05-25] MEDS ORDERED: Vancomycin HCl 750 MG in Sodium Chloride 0.9% 250 ML 250 ML IVPB SCH (23:15)
[2018-05-25] MEDS: Haloperidol Lactate 5 MG/ML VIAL SLOW IVP PRN (23:21)
[2018-05-26] MEDS: Haloperidol Lactate 5 MG/ML VIAL SLOW IVP PRN (00:32)
[2018-05-26] MEDS: Meropenem 500 MG in Sodium Chloride 0.9% 100 ML IVPB SCH ×2 (04:54→17:34)
[2018-05-26 06:55] LABS: Anion Gap 16 mmol/L (10-20); BUN (Urea Nitrogen) 78 mg/dL (8.4-25.7); Calc. Creatinine Clearance 24 mL/min (70-130); Calcium 8.8 mg/dL (7.8-10.44); Carbon Dioxide 20 mmol/L (23-31); Chloride 114 mmol/L (98-107); Estimated GFR-MDRD 29; Glucose 175 mg/dL (83-110); Potassium 4.2 mmol/L (3.5-5.1); Sodium 146 mmol/L (136-145)
[2018-05-26 06:56] LABS: ALT (SGPT) 31 U/L (8-55); AST (SGOT) 50 U/L (5-34); Albumin 2.6 g/dL (3.4-4.8); Alkaline Phosphatase 239 U/L (40-150); Bilirubin, Direct 0.3 mg/dL (0.1-0.3); Bilirubin, Total 0.4 mg/dL (0.2-1.2); Protein, Total 5.8 g/dL (5.8-8.1)
[2018-05-26 08:17] LABS: Band 8 % (5-11); Hemoglobin 13.5 g/dL (14.0-18.0); Lymphocytes 4 % (21-51); MDiff Complete? YES; Mean Corpuscular HGB CONC 32.6 g/dL (32.0-36.0); Mean Corpuscular Hemoglobin 30.3 pg (27.0-31.0); Mean Corpuscular Volume 92.9 fL (78.0-98.0); Mean Platelet Volume 7.8 fL (7.4-10.4); Monocytes 2 % (0-10); Neutrophil 86 % (42-75); Platelet Count 150 thou/uL (130-400); RBC Distribution Width 12.7 % (11.5-14.5); Red Blood Cell (RBC) Count 4.45 mill/uL (4.70-6.10); White Blood Cell (WBC) Count 16.6 thou/uL (4.8-10.8)
--- NOTE | 2018-05-26 08:46 | PRG ---
DATE OF SERVICE: 05/26/2018 The patient is 1 day status post laparoscopic cholecystectomy. He has dementia. He is awake, but does not communicate. He moans some. His abdomen is nondistended. The incisions are healing well. His vital signs; temperature 97.6, pulse 91, blood pressure 154/77. LABORATORY DATA: His white count has dropped from 24,000 to 16, hemoglobin and hematocrit of 13 and 41, and platelet count of 150. His total bilirubin is 0.4, AST of 50, alkaline phosphatase 239. ASSESSMENT: Clinical improvement after laparoscopic cholecystectomy. PLAN: Per Medical Service. Job ID: [id number]
[2018-05-26] MEDS: Sodium Chloride 0.45% 1,000 ML IV SCH ×2 (09:10→17:35)
[2018-05-26] MEDS: Tamsulosin HCl 0.4 MG CAP PO SCH (09:11)
[2018-05-26] MEDS: guaiFENesin/DM ER PO SCH ×3 (09:11→22:34)
[2018-05-26] MEDS: Multivitamin W/ Minerals 1 TAB PO SCH (09:11)
--- NOTE | 2018-05-26 09:30 | PDOC.PN ---
- Subjective Encounter Start Date: 05/26/18 Encounter Start Time: 09:29 Subjective: Demented, In no acute distress - Objective Resuscitation Status - Order Detail: 05/24/18 15:01 Resuscitation Status Routine Resuscitation Status: DNAR: NO Resuscitation Discussed with: confirmed with senior care facility Vital Signs & Weight: Vital Signs (12 hours) Temp Pulse Resp BP Pulse Ox 05/26/18 08:09 97.6 F 91 20 154/77 H 92 L Weight Weight 156 lb 12.8 oz I&O: 05/25/18 05/26/18 05/27/18 06:59 06:59 06:59 Intake Total 2200 Output Total 2330 Balance -130 Result Diagrams: 05/26/18 06:32 05/26/18 06:32 Additional Labs: Accuchecks 05/25/18 20:21 POC Glucose 230 H Phys Exam - Physical Examination Neck: no JVD Respiratory: clear to auscultation bilateral Cardiovascular: RRR Gastrointestinal: soft Musculoskeletal: no edema Neurological: moves all 4 limbs Dx/Plan (1) Sepsis Code(s): A41.9 - SEPSIS, UNSPECIFIED ORGANISM Status: Acute Comment: BxC is growing proteus species. On Meropenen. From UTI. Continue antibiotics for a total of 10 days.. (2) UTI (urinary tract infection) Status: Acute Plan: Urine culture is growing Proteus Mirabilis. P: as mentioned above. (3) Acute renal failure Status: Acute Comment: Improving f/u chemistry. (4) Hypertension Code(s): I10 - ESSENTIAL (PRIMARY) HYPERTENSION Status: Acute Plan: stable... Comment: Carries this diagnosis, but is not on treatment. BP improved with relief of the urine retention. (5) Urinary retention Code(s): R33.9 - RETENTION OF URINE, UNSPECIFIED Status: Acute Comment: Relieved with Cheung. >2 L of urine evacuated with catheter placement. Prostate not enlarged on exam in ED. Urine did not appear infected. Will consult Urology. Talked to Urology. Will need Cheung for a couple of weeks. (6) Dementia Code(s): F03.90 - UNSPECIFIED DEMENTIA WITHOUT BEHAVIORAL DISTURBANCE Status: Chronic (7) Cholecystitis Code(s): K81.9 - CHOLECYSTITIS, UNSPECIFIED Status: Acute Plan: s/p cholecystectomy.. - Plan -: Continue antibiotics, hydration. * .
[2018-05-26] MEDS: traMADol HCl 50 MG TAB PO PRN ×2 (14:03→22:26)
[2018-05-26] MEDS: Phenazopyridine HCl 97.5 MG TABLET PO PRN (22:25)
[2018-05-26] MEDS: Donepezil HCl 10 MG TAB PO SCH (22:25)
[2018-05-26 22:26] LABS: Vancomycin, Random 12.6 ug/mL (See Comment)
[2018-05-26] MEDS: Enoxaparin Sodium 30 MG/0.3 ML SYRINGE SC SCH (22:26)
[2018-05-26] MEDS ORDERED: Vancomycin HCl 750 MG in Sodium Chloride 0.9% 250 ML 250 ML IVPB SCH (22:45)
[2018-05-27] MEDS: Meropenem 500 MG in Sodium Chloride 0.9% 100 ML IVPB SCH ×2 (05:37→17:31)
[2018-05-27] MEDS: traMADol HCl 50 MG TAB PO PRN ×3 (05:38→21:34)
[2018-05-27] MEDS: Sodium Chloride 0.45% 1,000 ML IV SCH ×3 (05:44→21:33)
[2018-05-27 08:08] LABS: Anion Gap 15 mmol/L (10-20); BUN (Urea Nitrogen) 64 mg/dL (8.4-25.7); Calc. Creatinine Clearance 30 mL/min (70-130); Calcium 9.2 mg/dL (7.8-10.44); Carbon Dioxide 21 mmol/L (23-31); Chloride 118 mmol/L (98-107); Estimated GFR-MDRD 38; Glucose 167 mg/dL (83-110); Potassium 3.6 mmol/L (3.5-5.1); Sodium 150 mmol/L (136-145)
[2018-05-27 08:17] LABS: Band 4 % (5-11); Hemoglobin 13.7 g/dL (14.0-18.0); Lymphocytes 9 % (21-51); MDiff Complete? YES; Mean Corpuscular HGB CONC 31.7 g/dL (32.0-36.0); Mean Corpuscular Hemoglobin 29.3 pg (27.0-31.0); Mean Corpuscular Volume 92.5 fL (78.0-98.0); Mean Platelet Volume 8.1 fL (7.4-10.4); Monocytes 3 % (0-10); Neutrophil 84 % (42-75); Platelet Count 136 thou/uL (130-400); RBC Distribution Width 12.8 % (11.5-14.5); Red Blood Cell (RBC) Count 4.66 mill/uL (4.70-6.10)
[2018-05-27] MEDS: guaiFENesin/DM ER PO SCH ×2 (09:11→21:33)
[2018-05-27] MEDS: Multivitamin W/ Minerals 1 TAB PO SCH (09:23)
[2018-05-27] MEDS: Tamsulosin HCl 0.4 MG CAP PO SCH (09:23)
--- NOTE | 2018-05-27 09:32 | PDOC.PN ---
- Subjective Encounter Start Date: 05/27/18 Encounter Start Time: 09:15 -: Comfortable. -: Demented. - Objective Resuscitation Status - Order Detail: 05/24/18 15:01 Resuscitation Status Routine Resuscitation Status: DNAR: NO Resuscitation Discussed with: confirmed with [facility] Vital Signs & Weight: Vital Signs (12 hours) Temp Pulse Resp BP Pulse Ox 05/27/18 07:54 98.1 F 72 20 162/89 H 100 05/26/18 23:35 77 18 99 Weight Weight 156 lb 12.8 oz I&O: 05/26/18 05/27/18 05/28/18 06:59 06:59 06:59 Intake Total 2200 1620 Output Total 2330 450 Balance -130 1170 Result Diagrams: 05/27/18 07:14 05/27/18 07:14 Phys Exam - Physical Examination Neck: no JVD Respiratory: clear to auscultation bilateral Cardiovascular: RRR Gastrointestinal: non-tender Musculoskeletal: no edema Neurological: moves all 4 limbs Dx/Plan (1) Sepsis Code(s): A41.9 - SEPSIS, UNSPECIFIED ORGANISM Status: Acute Comment: BxC is growing proteus species sensitive to Meropenen. On Meropenen. From UTI. Continue antibiotics for a total of 10 days.. (2) UTI (urinary tract infection) Status: Acute Plan: As above. (3) Acute renal failure Status: Acute Comment: Improving f/u chemistry. (4) Hypertension Code(s): I10 - ESSENTIAL (PRIMARY) HYPERTENSION Status: Acute Comment: Carries this diagnosis, but is not on treatment. BP improved with relief of the urine retention. (5) Urinary retention Code(s): R33.9 - RETENTION OF URINE, UNSPECIFIED Status: Acute Comment: Relieved with Cheung. >2 L of urine evacuated with catheter placement. Prostate not enlarged on exam in ED. Urine did not appear infected. Will consult Urology. Talked to Urology. Will need [facility] for a couple of weeks. (6) Dementia Code(s): F03.90 - UNSPECIFIED DEMENTIA WITHOUT BEHAVIORAL DISTURBANCE Status: Chronic (7) Cholecystitis Code(s): K81.9 - CHOLECYSTITIS, UNSPECIFIED Status: Acute - Plan -: Continue antibiotics for a total of 10 days. -: f/u chemistry. * .
[2018-05-27] MEDS: Donepezil HCl 10 MG TAB PO SCH (21:34)
[2018-05-27] MEDS: Enoxaparin Sodium 30 MG/0.3 ML SYRINGE SC SCH (21:34)
[2018-05-27 23:44] LABS: Vancomycin, Random 13.2 ug/mL (See Comment)
[2018-05-28] MEDS ORDERED: diphenhydrAMINE 50 MG/ML VIAL IVP SCH (00:45)
[2018-05-28] MEDS: Meropenem 500 MG in Sodium Chloride 0.9% 100 ML IVPB SCH ×2 (06:14→18:35)
[2018-05-28 06:30] LABS: Anion Gap 13 mmol/L (10-20); BUN (Urea Nitrogen) 50 mg/dL (8.4-25.7); Calc. Creatinine Clearance 39 mL/min (70-130); Calcium 8.9 mg/dL (7.8-10.44); Carbon Dioxide 18 mmol/L (23-31); Chloride 120 mmol/L (98-107); Estimated GFR-MDRD 50; Glucose 126 mg/dL (83-110); Potassium 3.3 mmol/L (3.5-5.1); Sodium 148 mmol/L (136-145)
[2018-05-28] MEDS: Tamsulosin HCl 0.4 MG CAP PO SCH (09:32)
[2018-05-28] MEDS: guaiFENesin/DM ER PO SCH ×2 (09:32→22:20)
[2018-05-28] MEDS: Sodium Chloride 0.45% 1,000 ML IV SCH ×2 (09:32→18:35)
[2018-05-28] MEDS: Multivitamin W/ Minerals 1 TAB PO SCH (09:32)
--- NOTE | 2018-05-28 10:05 | PRG ---
DATE OF SERVICE: 05/28/2018 SUBJECTIVE: Erick Rice is doing well after laparoscopic cholecystectomy 3 days ago. Postoperative liver function tests were normal. The patient's baseline state is noncommunicative, nonverbal. His abdomen is soft. His wounds are well healed. He has had positive blood cultures and urine cultures all for Proteus. Intraoperatively, the patient's gallbladder was not inflamed, although he had multiple stones. The patient's gallbladder, although he may have had chronic cholecystitis was not responsible for his bacteremia or sepsis. His bacteremia or sepsis was due to urinary tract infection from chronic indwelling Cheung catheter. The patient had a past hospitalization for urinary retention and is on Flomax, but continues with a Cheung catheter in place. At this point, the patient is doing well after laparoscopic cholecystectomy and I will see him as needed. He does not need to follow up in my office unless there are concerns. The patient's transportation is difficulty in mobility difficulties and he has been seen adequately in the hospital postoperatively and postoperative office followup is not necessary. At this point, I will see him as needed postoperatively. Would suggest consultation with Urology to deal with chronic indwelling Cheung catheter to prevent further UTIs. I will see him as needed this hospitalization. Please call if necessary. Job ID: [id number]
--- NOTE | 2018-05-28 10:57 | PDOC.PN ---
- Subjective Encounter Start Date: 05/28/18 Encounter Start Time: 12:40 Subjective: Patient mumbling, no clear communication. - Objective Resuscitation Status - Order Detail: 05/24/18 15:01 Resuscitation Status Routine Resuscitation Status: DNAR: NO Resuscitation Discussed with: confirmed with assisted facility MAR Reviewed: Yes Vital Signs & Weight: Vital Signs (12 hours) Temp Pulse Resp BP Pulse Ox 05/28/18 08:06 98.2 F 79 20 159/79 H 96 Weight Weight 156 lb 12.8 oz I&O: 05/27/18 05/28/18 05/29/18 06:59 06:59 06:59 Intake Total 1620 1500 Output Total 450 650 Balance 1170 850 Result Diagrams: 05/27/18 07:14 05/28/18 05:56 Phys Exam - Physical Examination Constitutional: NAD HEENT: moist MMs Respiratory: no wheezing, no rales, no rhonchi Cardiovascular: RRR Gastrointestinal: soft, positive bowel sounds Musculoskeletal: no edema Deviation from normal: mumbling, not oriented Dx/Plan (1) Sepsis Code(s): A41.9 - SEPSIS, UNSPECIFIED ORGANISM Status: Acute Comment: BxC is growing proteus species sensitive to Meropenen, cephalosporins On Meropenen. From UTI. Would recommend 14 days of antibiotics due to the need for continuous tinoco. Will change out tinoco now that on correct antibiotics. Will recheck lab in AM, if WBC continues to improve can switch to oral Omnicef. (2) UTI (urinary tract infection) Status: Acute Qualifiers: Urinary tract infection type: catheter-associated UTI (3) Urinary retention Code(s): R33.9 - RETENTION OF URINE, UNSPECIFIED Status: Acute Comment: Noted in March, at that time Dr. Lopez recommended 2 weeks of tinoco and voiding trial. Patient had recurrent urinary retention at [place] and tinoco replaced. Patient now returned with catheter associated uti and bacteremia. May need suprapubic cath. Will consult Dr. Lopez. (4) Cholecystitis Code(s): K81.9 - CHOLECYSTITIS, UNSPECIFIED Status: Resolved Comment: s/p cholecystectomy, general surgery has signed off, doesn't need followup, not the source of the bacteremia (5) Dementia Code(s): F03.90 - UNSPECIFIED DEMENTIA WITHOUT BEHAVIORAL DISTURBANCE Status: Chronic Comment: non-verbal now - Plan cont current plan of care, continue antibiotics * . - Discharge Day Encounter end time: 12:50
[2018-05-28] MEDS ORDERED: diphenhydrAMINE 25 MG CAP PO SCH (21:49)
[2018-05-28] MEDS: Donepezil HCl 10 MG TAB PO SCH (22:19)
[2018-05-28] MEDS: Enoxaparin Sodium 30 MG/0.3 ML SYRINGE SC SCH (22:20)
--- NOTE | 2018-05-29 02:55 | CON ---
DATE OF CONSULTATION: 05/28/2018 CHIEF COMPLAINT: Urinary retention, positive urine culture. HISTORY OF PRESENT ILLNESS: Mr. Rice is an 88-year-old gentleman who I saw in consultation during a previous admission in early March. At that time, he presented with abdominal distention and hydronephrosis and an elevated creatinine. He was in urinary retention with greater than 2 L of urine in his bladder. A Cheung catheter was placed at that time. The patient was brought back to the hospital on 05/24/2018. It is difficult to discern the history. The patient is not capable of giving history and as best I can tell from the chart, he was brought in from a custodial with altered mental status. On evaluation, a CT scan was performed, it demonstrated findings consistent with cholecystitis. He underwent a cholecystectomy by Dr. Alberto on 05/25/2018. The catheter remained in place. A urine culture has been obtained and is positive for Proteus, sensitive to all antibiotics tested other than Macrobid, Levaquin, and Cipro. PAST MEDICAL HISTORY: Obtained from the chart as the patient is not able to give history. 1. Hypertension. 2. Pacemaker. 3. Osteoarthritis. 4. Ischemic heart disease. 5. Urinary retention. 6. Alzheimer dementia. PAST SURGICAL HISTORY: 1. Cholecystectomy during this admission. 2. Pacemaker. 3. Hip replacement. SOCIAL HISTORY: Apparently, the patient lives in a custodial. FAMILY HISTORY: Unknown. ALLERGIES: NO KNOWN DRUG ALLERGIES. CURRENT MEDICATIONS: 1. Guaifenesin. 2. Multivitamins. 3. Aricept. 4. Namenda. 5. Flomax. PHYSICAL EXAMINATION: GENERAL: The patient is in no acute distress. He is arousable, but does not communicate well. VITAL SIGNS: Blood pressure 148/82, pulse 72, respiratory rate 16. HEENT: Normocephalic, atraumatic. NECK: Supple without masses. CHEST: Clear to auscultation. ABDOMEN: Soft, nontender. No palpable masses. Liver and spleen are not palpable. No abdominal tenderness. : Penis, without lesions. Cheung catheter in place, draining clear yellow urine. LABORATORY DATA: Urine culture 05/24/2018 (date of admission) positive for Proteus. IMPRESSION: Mr. Rice is an 88-year-old gentleman who has urinary retention. I am unable to communicate with the patient. I am unsure whether the catheter has been in place since his prior admission. He is unable to consent for any sort of surgical procedure that is not an emergency and is also my suspicion that surgical therapy for his urinary retention would not necessarily improve his quality of life. He would most likely be incontinent after the procedure, if indeed, he could even void. RECOMMENDATIONS: 1. Cheung catheter to remain indwelling at this time while treatment of Proteus urinary tract infection is ongoing. 2. Voiding trials can be performed at the nursing facility. 3. Consider surgical therapy if the patient's mental status improves. 4. No indication for suprapubic tube. Job ID: [id number]
[2018-05-29] MEDS: Sodium Chloride 0.45% 1,000 ML IV SCH ×2 (03:00→09:01)
[2018-05-29] MEDS: Meropenem 500 MG in Sodium Chloride 0.9% 100 ML IVPB SCH ×2 (05:07→18:01)
[2018-05-29] MEDS: guaiFENesin/DM ER PO SCH ×2 (09:01→20:38)
[2018-05-29] MEDS: Multivitamin W/ Minerals 1 TAB PO SCH (09:01)
[2018-05-29] MEDS: Tamsulosin HCl 0.4 MG CAP PO SCH (09:01)
--- NOTE | 2018-05-29 09:42 | PDOC.PN ---
- Subjective Encounter Start Date: 05/29/18 Encounter Start Time: 10:10 Subjective: Patient mumbling, no clear communication. - Objective Resuscitation Status - Order Detail: 05/24/18 15:01 Resuscitation Status Routine Resuscitation Status: DNAR: NO Resuscitation Discussed with: confirmed with [facility] MAR Reviewed: Yes Vital Signs & Weight: Vital Signs (12 hours) Temp Pulse Resp BP Pulse Ox 05/29/18 07:58 97.9 F 64 20 165/77 H 98 Weight Weight 156 lb 12.8 oz I&O: 05/28/18 05/29/18 05/30/18 06:59 06:59 06:59 Intake Total 1500 1580 Output Total 650 750 Balance 850 830 Result Diagrams: 05/29/18 09:48 05/29/18 09:48 Phys Exam - Physical Examination Constitutional: NAD HEENT: moist MMs Respiratory: no wheezing, no rales, no rhonchi Cardiovascular: RRR Gastrointestinal: soft, positive bowel sounds Musculoskeletal: no edema Neurological: moves all 4 limbs Deviation from normal: mumbles, no coherent words Dx/Plan (1) Sepsis Code(s): A41.9 - SEPSIS, UNSPECIFIED ORGANISM Status: Acute Comment: BxC is growing proteus species sensitive to Meropenen, cephalosporins, on Meropenem From UTI. Tinoco changed out. Would recommend 14 days of antibiotics due to the need for continuous tinoco. Will recheck lab in AM, if WBC continues to improve can switch to oral Omnicef. (2) UTI (urinary tract infection) Status: Acute Qualifiers: Urinary tract infection type: catheter-associated UTI (3) Urinary retention Code(s): R33.9 - RETENTION OF URINE, UNSPECIFIED Status: Acute Comment: Noted in March, at that time Dr. Lopez recommended 2 weeks of tinoco and voiding trial. Patient had recurrent urinary retention at [place] and tinoco replaced. Patient now returned with catheter associated uti and bacteremia. Catheter changed out per Dr. Lopez. Can try voiding trial once back at [facility]. If unsuccessful may consider suprapubic cath in future. (4) Cholecystitis Code(s): K81.9 - CHOLECYSTITIS, UNSPECIFIED Status: Resolved Comment: s/p cholecystectomy, general surgery has signed off, doesn't need followup, not the source of the bacteremia (5) Dementia Code(s): F03.90 - UNSPECIFIED DEMENTIA WITHOUT BEHAVIORAL DISTURBANCE Status: Chronic Comment: non-verbal now (6) Hypokalemia Code(s): E87.6 - HYPOKALEMIA Status: Acute (7) Hypernatremia Code(s): E87.0 - HYPEROSMOLALITY AND HYPERNATREMIA Status: Acute Comment: change fluids to D5 1/2 NS with potassium - Plan cont current plan of care, continue antibiotics, DVT proph w/lovenox, DVT proph w/SCDs * . - Discharge Day Encounter end time: 10:20
[2018-05-29 10:15] LABS: Hemoglobin 13.1 g/dL (14.0-18.0); Mean Corpuscular HGB CONC 31.8 g/dL (32.0-36.0); Mean Corpuscular Hemoglobin 29.1 pg (27.0-31.0); Mean Corpuscular Volume 91.3 fL (78.0-98.0); Platelet Count 133 thou/uL (130-400); Red Blood Cell (RBC) Count 4.52 mill/uL (4.70-6.10); White Blood Cell (WBC) Count 18.3 thou/uL (4.8-10.8)
[2018-05-29 10:22] LABS: Anion Gap 13 mmol/L (10-20); BUN (Urea Nitrogen) 39 mg/dL (8.4-25.7); Calc. Creatinine Clearance 46 mL/min (70-130); Calcium 8.1 mg/dL (7.8-10.44); Carbon Dioxide 19 mmol/L (23-31); Chloride 119 mmol/L (98-107); Estimated GFR-MDRD 60; Glucose 172 mg/dL (83-110); Potassium 3.4 mmol/L (3.5-5.1); Sodium 148 mmol/L (136-145)
[2018-05-29 11:04] LABS: Band 7 % (5-11); Eosinophils 2 % (0-10); Lymphocytes 6 % (21-51); MDiff Complete? YES; Metamyelocyte 3 % (0-0); Monocytes 3 % (0-10); Myelocyte 1 % (0-0); Neutrophil 78 % (42-75); RBC Morphology Normal
[2018-05-29] MEDS: D5 1/2 NS w/10 mEq KCl 1,000 ML/1,000 ML BAG IV SCH ×3 (13:08→21:20)
[2018-05-29] MEDS: Donepezil HCl 10 MG TAB PO SCH (20:38)
[2018-05-29] MEDS: Enoxaparin Sodium 30 MG/0.3 ML SYRINGE SC SCH (20:39)
[2018-05-29] MEDS: traMADol HCl 50 MG TAB PO PRN (21:20)
[2018-05-30] MEDS: Meropenem 500 MG in Sodium Chloride 0.9% 100 ML IVPB SCH ×2 (05:09→17:36)
--- NOTE | 2018-05-30 07:57 | PDOC.PN ---
- Subjective Encounter Start Date: 05/30/18 Encounter Start Time: 09:30 Subjective: Patient still confused, speech rather mumbled and not very -: intelligeble. - Objective Resuscitation Status - Order Detail: 05/24/18 15:01 Resuscitation Status Routine Resuscitation Status: DNAR: NO Resuscitation Discussed with: confirmed with [facility] MAR Reviewed: Yes Vital Signs & Weight: Vital Signs (12 hours) Temp Pulse Resp BP BP Pulse Ox 05/30/18 07:31 97.9 F 81 20 157/65 H 93 L 05/29/18 20:00 97.9 F 69 20 165/79 H 97 Weight Weight 156 lb 12.8 oz I&O: 05/29/18 05/30/18 05/31/18 06:59 06:59 06:59 Intake Total 1580 Output Total 750 1200 Balance 830 -1200 Result Diagrams: 05/30/18 07:50 05/30/18 07:50 Phys Exam - Physical Examination Constitutional: NAD HEENT: moist MMs Respiratory: no wheezing, no rales, no rhonchi Cardiovascular: RRR Gastrointestinal: soft, positive bowel sounds Neurological: non-focal Deviation from normal: alert Dx/Plan (1) Sepsis Code(s): A41.9 - SEPSIS, UNSPECIFIED ORGANISM Status: Acute Comment: BxC is growing proteus species sensitive to Meropenen, cephalosporins, on Meropenem From UTI. Tinoco changed out. Would recommend 14 days of antibiotics due to the need for continuous tinoco. Afebrile, WBC still climbing a little, will switch to oral abx once improves. (2) UTI (urinary tract infection) Status: Acute Qualifiers: Urinary tract infection type: catheter-associated UTI (3) Urinary retention Code(s): R33.9 - RETENTION OF URINE, UNSPECIFIED Status: Acute Comment: Noted in March, at that time Dr. Lopez recommended 2 weeks of tinoco and voiding trial. Patient had recurrent urinary retention at OR and tinoco replaced. Patient now returned with catheter associated uti and bacteremia. Catheter changed out per Dr. Lopez. Can try voiding trial once back at [facility]. If unsuccessful may consider suprapubic cath in future. (4) Cholecystitis Code(s): K81.9 - CHOLECYSTITIS, UNSPECIFIED Status: Resolved Comment: s/p cholecystectomy, general surgery has signed off, doesn't need followup, not the source of the bacteremia (5) Dementia Code(s): F03.90 - UNSPECIFIED DEMENTIA WITHOUT BEHAVIORAL DISTURBANCE Status: Chronic Comment: non-verbal now (6) Hypokalemia Code(s): E87.6 - HYPOKALEMIA Status: Acute (7) Hypernatremia Code(s): E87.0 - HYPEROSMOLALITY AND HYPERNATREMIA Status: Acute Comment: change fluids to D5 1/2 NS with potassium - Plan cont current plan of care, continue antibiotics, DVT proph w/lovenox, DVT proph w/SCDs * . - Discharge Day Encounter end time: 09:40
[2018-05-30] MEDS: Multivitamin W/ Minerals 1 TAB PO SCH (08:05)
[2018-05-30] MEDS: guaiFENesin/DM ER PO SCH ×2 (08:06→19:43)
[2018-05-30] MEDS: Tamsulosin HCl 0.4 MG CAP PO SCH (08:06)
[2018-05-30 08:36] LABS: Anion Gap 11 mmol/L (10-20); BUN (Urea Nitrogen) 28 mg/dL (8.4-25.7); Calc. Creatinine Clearance 50 mL/min (70-130); Calcium 8.1 mg/dL (7.8-10.44); Carbon Dioxide 20 mmol/L (23-31); Chloride 117 mmol/L (98-107); Estimated GFR-MDRD 67; Glucose 229 mg/dL (83-110); Potassium 3.4 mmol/L (3.5-5.1); Sodium 145 mmol/L (136-145)
[2018-05-30 09:09] LABS: Hemoglobin 13.6 g/dL (14.0-18.0); Mean Corpuscular HGB CONC 31.5 g/dL (32.0-36.0); Mean Corpuscular Hemoglobin 28.7 pg (27.0-31.0); Mean Corpuscular Volume 91.2 fL (78.0-98.0); Mean Platelet Volume 7.9 fL (7.4-10.4); Platelet Count 154 thou/uL (130-400); Red Blood Cell (RBC) Count 4.74 mill/uL (4.70-6.10); White Blood Cell (WBC) Count 19.8 thou/uL (4.8-10.8)
[2018-05-30 09:10] LABS: Band 1 % (5-11); Eosinophils 2 % (0-10); Hypochromia SLIGHT = 6-15 cells (100X) (0-5/hpf); Lymphocytes 6 % (21-51); MDiff Complete? YES; Monocytes 4 % (0-10); Neutrophil 87 % (42-75); Platelet Morphology Comment Appears Adequate; Polychromasia SLIGHT = 2-3 cells (100X) (0-2/hpf)
[2018-05-30] MEDS ORDERED: Potassium Chloride 20 MEQ TAB PO SCH (10:30)
[2018-05-30] MEDS: D5 1/2 NS w/10 mEq KCl 1,000 ML/1,000 ML BAG IV SCH (17:27)
[2018-05-30] MEDS: Donepezil HCl 10 MG TAB PO SCH (19:42)
[2018-05-30] MEDS: Enoxaparin Sodium 30 MG/0.3 ML SYRINGE SC SCH (19:43)
[2018-05-31] MEDS: D5 1/2 NS w/10 mEq KCl 1,000 ML/1,000 ML BAG IV SCH ×3 (02:24→18:28)
[2018-05-31] MEDS: Meropenem 500 MG in Sodium Chloride 0.9% 100 ML IVPB SCH (04:22)
[2018-05-31 06:15] LABS: Band 5 % (5-11); Hemoglobin 13.2 g/dL (14.0-18.0); Lymphocytes 6 % (21-51); MDiff Complete? YES; Mean Corpuscular HGB CONC 32.6 g/dL (32.0-36.0); Mean Corpuscular Volume 92.1 fL (78.0-98.0); Mean Platelet Volume 7.6 fL (7.4-10.4); Monocytes 2 % (0-10); Neutrophil 87 % (42-75); Platelet Count 157 thou/uL (130-400); RBC Distribution Width 12.9 % (11.5-14.5); Red Blood Cell (RBC) Count 4.39 mill/uL (4.70-6.10); White Blood Cell (WBC) Count 19.9 thou/uL (4.8-10.8)
[2018-05-31] MEDS: Tamsulosin HCl 0.4 MG CAP PO SCH (07:55)
[2018-05-31] MEDS: guaiFENesin/DM ER PO SCH ×2 (07:55→20:58)
[2018-05-31] MEDS: Multivitamin W/ Minerals 1 TAB PO SCH (07:55)
[2018-05-31] MEDS ORDERED: Potassium Chloride 10 MEQ TAB PO SCH (09:30)
--- NOTE | 2018-05-31 09:31 | PDOC.PN ---
- Subjective Encounter Start Date: 05/31/18 Encounter Start Time: 10:40 Subjective: Patient more alert, speech still quite garbled and soft but -: more understandible. States he is not having any pain. - Objective Resuscitation Status - Order Detail: 05/24/18 15:01 Resuscitation Status Routine Resuscitation Status: DNAR: NO Resuscitation Discussed with: confirmed with residential facility MAR Reviewed: Yes Vital Signs & Weight: Vital Signs (12 hours) Temp Pulse Resp BP Pulse Ox 05/31/18 07:00 98.4 F 70 20 154/74 H 97 Weight Weight 156 lb 12.8 oz I&O: 05/30/18 05/31/18 06/01/18 06:59 06:59 06:59 Intake Total 1250 Output Total 1200 1800 Balance -1200 -550 Result Diagrams: 05/31/18 05:12 05/30/18 07:50 Phys Exam - Physical Examination Constitutional: NAD HEENT: moist MMs Respiratory: no wheezing, no rales, no rhonchi Cardiovascular: RRR Gastrointestinal: soft, positive bowel sounds minimal postop tenderness Neurological: non-focal, moves all 4 limbs Psychiatric: normal affect Deviation from normal: oriented to person Dx/Plan (1) Sepsis Code(s): A41.9 - SEPSIS, UNSPECIFIED ORGANISM Status: Acute Comment: BxC is growing proteus species sensitive to Meropenen, cephalosporins, on Meropenem From UTI. Tinoco changed out. Would recommend 14 days of antibiotics due to the need for continuous tinoco. Afebrile, WBC stable, change to oral abx. (2) UTI (urinary tract infection) Status: Acute Qualifiers: Urinary tract infection type: catheter-associated UTI (3) Urinary retention Code(s): R33.9 - RETENTION OF URINE, UNSPECIFIED Status: Acute Comment: Noted in March, at that time Dr. Lopez recommended 2 weeks of tinoco and voiding trial. Patient had recurrent urinary retention at OR and tinoco replaced. Patient now returned with catheter associated uti and bacteremia. Catheter changed out per Dr. Lopez. Can try voiding trial once back at [facility]. If unsuccessful may consider suprapubic cath in future. (4) Cholecystitis Code(s): K81.9 - CHOLECYSTITIS, UNSPECIFIED Status: Resolved Comment: s/p cholecystectomy, general surgery has signed off, doesn't need followup, not the source of the bacteremia (5) Dementia Code(s): F03.90 - UNSPECIFIED DEMENTIA WITHOUT BEHAVIORAL DISTURBANCE Status: Chronic (6) Hypokalemia Code(s): E87.6 - HYPOKALEMIA Status: Acute (7) Hypernatremia Code(s): E87.0 - HYPEROSMOLALITY AND HYPERNATREMIA Status: Acute Comment: change fluids to D5 1/2 NS with potassium - Plan cont current plan of care, continue antibiotics, DVT proph w/lovenox, DVT proph w/SCDs Possibly back to [facility] in next 1-2 days * . - Discharge Day Encounter end time: 10:50
[2018-05-31] MEDS: Donepezil HCl 10 MG TAB PO SCH (20:49)
[2018-05-31] MEDS: Cefdinir 300 MG CAP PO SCH (20:49)
[2018-05-31] MEDS: Enoxaparin Sodium 30 MG/0.3 ML SYRINGE SC SCH (20:51)
[2018-06-01] MEDS: D5 1/2 NS w/10 mEq KCl 1,000 ML/1,000 ML BAG IV SCH (05:15)
[2018-06-01 05:51] LABS: #Eosinphils 0.2 thou/uL (0.0-0.7); #Lymphocytes 1.1 thou/uL (1.20-3.40); #Monocytes 0.5 thou/uL (0.11-0.59); %Basophils 0.1 % (0.0-1.0); %Eosinophils 0.8 % (0.0-10.0); %Lymphocytes 5.9 % (21.0-51.0); %Monocytes 2.8 % (0.0-10.0); %Neutrophils 90.4 % (42.0-75.0); Hemoglobin 12.8 g/dL (14.0-18.0); Mean Corpuscular HGB CONC 33.1 g/dL (32.0-36.0); Mean Corpuscular Volume 90.6 fL (78.0-98.0); Mean Platelet Volume 7.8 fL (7.4-10.4); Platelet Count 180 thou/uL (130-400); RBC Distribution Width 12.8 % (11.5-14.5); Red Blood Cell (RBC) Count 4.28 mill/uL (4.70-6.10); White Blood Cell (WBC) Count 18.9 thou/uL (4.8-10.8)
[2018-06-01 06:13] LABS: Anion Gap 10 mmol/L (10-20); BUN (Urea Nitrogen) 16 mg/dL (8.4-25.7); Calc. Creatinine Clearance 54 mL/min (70-130); Carbon Dioxide 25 mmol/L (23-31); Chloride 107 mmol/L (98-107); Estimated GFR-MDRD 73; Glucose 226 mg/dL (83-110); Potassium 3.8 mmol/L (3.5-5.1); Sodium 138 mmol/L (136-145)
[2018-06-01] MEDS: Cefdinir 300 MG CAP PO SCH ×2 (10:10→20:01)
[2018-06-01] MEDS: Multivitamin W/ Minerals 1 TAB PO SCH (10:10)
[2018-06-01] MEDS: Potassium Chloride 10 MEQ TAB PO SCH (10:11)
[2018-06-01] MEDS: Tamsulosin HCl 0.4 MG CAP PO SCH (10:11)
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
--- NOTE | 2018-06-01 14:44 | RAD ---
PORTABLE CHEST: Date: 06/01/18 PROVIDED CLINICAL HISTORY: Leukocytosis. FINDINGS: Comparison made with the study dated 05/24/18. The lungs are hypoinflated. The cardiac silhouette appears enlarged. Left subclavian cardiac pacing d evice is again demonstrated with lead tips overlying the expected locations of RA and RV. Vascular ca lcifications again seen. Bilateral pleural effusions with adjacent subsegmental atelectasis or infilt rate. No evidence for pneumothorax. IMPRESSION: Development of bilateral pleural effusions with adjacent subsegmental atelectasis or infiltrate. POS: [facility]
[2018-06-01] MEDS: guaiFENesin/DM ER PO SCH ×2 (15:30→20:07)
[2018-06-01] MEDS ORDERED: HumaLOG 300 UNITS/3 ML VIAL SC PRN ×2 (15:51)
[2018-06-01] MEDS ORDERED: Dextrose 50% Abboject 50 ML SYRINGE SLOW IVP PRN (15:51)
[2018-06-01] MEDS ORDERED: Dextrose 5% in Water 1,000 ML IV PRN (15:51)
[2018-06-01] MEDS ORDERED: Furosemide 20 MG/2 ML VIAL SLOW IVP SCH (16:00)
[2018-06-01] MEDS: Donepezil HCl 10 MG TAB PO SCH (20:04)
[2018-06-01] MEDS: Enoxaparin Sodium 30 MG/0.3 ML SYRINGE SC SCH (20:06)
[2018-06-02] MEDS: Furosemide 20 MG/2 ML VIAL SLOW IVP SCH (05:18)
[2018-06-02 06:06] LABS: #Eosinphils 0.2 thou/uL (0.0-0.7); #Lymphocytes 1.1 thou/uL (1.20-3.40); #Monocytes 0.7 thou/uL (0.11-0.59); #Neutrophils 14.4 thou/uL (1.40-6.50); %Basophils 0.2 % (0.0-1.0); %Eosinophils 1.1 % (0.0-10.0); %Lymphocytes 6.6 % (21.0-51.0); %Monocytes 4.3 % (0.0-10.0); %Neutrophils 87.8 % (42.0-75.0); Hemoglobin 12.8 g/dL (14.0-18.0); Mean Corpuscular HGB CONC 32.5 g/dL (32.0-36.0); Mean Corpuscular Hemoglobin 29.4 pg (27.0-31.0); Mean Corpuscular Volume 90.5 fL (78.0-98.0); Platelet Count 192 thou/uL (130-400); RBC Distribution Width 12.7 % (11.5-14.5); Red Blood Cell (RBC) Count 4.34 mill/uL (4.70-6.10); White Blood Cell (WBC) Count 16.4 thou/uL (4.8-10.8)
[2018-06-02 06:25] LABS: Anion Gap 10 mmol/L (10-20); BUN (Urea Nitrogen) 15 mg/dL (8.4-25.7); Calc. Creatinine Clearance 59 mL/min (70-130); Calcium 7.8 mg/dL (7.8-10.44); Carbon Dioxide 24 mmol/L (23-31); Chloride 105 mmol/L (98-107); Estimated GFR-MDRD 82; Glucose 143 mg/dL (83-110); Potassium 3.5 mmol/L (3.5-5.1); Sodium 135 mmol/L (136-145)
[2018-06-02] MEDS: Potassium Chloride 10 MEQ TAB PO SCH (08:49)
[2018-06-02] MEDS: Tamsulosin HCl 0.4 MG CAP PO SCH (08:49)
[2018-06-02] MEDS: Cefdinir 300 MG CAP PO SCH ×2 (08:49→19:57)
[2018-06-02] MEDS: Multivitamin W/ Minerals 1 TAB PO SCH (08:49)
--- NOTE | 2018-06-02 11:52 | PDOC.PN ---
- Subjective Encounter Start Date: 06/02/18 Encounter Start Time: 11:50 Patient seen and examined, no new issues or complaints, all questions answered. No family at bedside. - Objective Resuscitation Status - Order Detail: 05/24/18 15:01 Resuscitation Status Routine Resuscitation Status: DNAR: NO Resuscitation Discussed with: confirmed with [facility] facility Vital Signs & Weight: Vital Signs (12 hours) Temp Pulse Resp BP Pulse Ox 06/02/18 08:22 98.0 F 68 16 166/76 H 97 06/02/18 04:17 97.7 F 81 16 148/75 H 98 06/02/18 00:49 98 F 81 16 131/78 98 Weight Weight 156 lb 12.8 oz I&O: 06/01/18 06/02/18 06/03/18 06:59 06:59 06:59 Intake Total 1400 540 180 Output Total 1999 2675 Balance -600 2133 180 Result Diagrams: 06/02/18 05:54 06/02/18 05:54 Additional Labs: Accuchecks 06/02/18 06/01/18 05:32 21:39 POC Glucose 139 H 176 H Phys Exam - Physical Examination Constitutional: NAD HEENT: PERRLA, moist MMs, sclera anicteric Neck: no nodes, no JVD, supple Respiratory: no wheezing, no rales, no rhonchi Cardiovascular: no significant murmur, no rub Gastrointestinal: soft, non-tender, no distention, positive bowel sounds Musculoskeletal: pulses present, edema present (trace) Dx/Plan (1) Bacteremia Code(s): R78.81 - BACTEREMIA Status: Acute (2) Leukocytosis Code(s): D72.829 - ELEVATED WHITE BLOOD CELL COUNT, UNSPECIFIED Status: Acute (3) Cancer of skin, finger, hand, or arm Code(s): C44.601 - UNSP MALIGNANT NEOPLASM SKIN/ UNSP UPPER LIMB, INC SHOULDER Status: Acute (4) Hypertension Code(s): I10 - ESSENTIAL (PRIMARY) HYPERTENSION Status: Acute Comment: Carries this diagnosis, but is not on treatment. BP improved with relief of the urine retention. - Plan * cont with abx for now and current plan of care * labs in AM * if CBC trending down and patient remains afebrile over the next 24 hours, will likely consider DC back to his NH from whence he came * no family at bedside
[2018-06-02] MEDS ORDERED: guaiFENesin/DM ER PO SCH (13:15)
[2018-06-02] MEDS: guaiFENesin/DM ER PO SCH ×2 (13:16→19:58)
--- NOTE | 2018-06-02 15:24 | EKG ---
Test Reason : Blood Pressure : / mmHG Vent. Rate : 086 BPM Atrial Rate : 093 BPM P-R Int : 000 ms QRS Dur : 108 ms QT Int : 384 ms P-R-T Axes : 000 -60 095 degrees QTc Int : 459 ms Atrial fibrillation Left axis deviation Anteroseptal infarct , age undetermined Abnormal ECG Confirmed by KAREN NAZARIO D.O. ([id number]), deputy editor in chief KYREE VAZQUEZ ([id number]) on 06/02/2018 3:24:16 PM Referred By: Confirmed By:KAREN NAZARIO D.O.
[2018-06-02] MEDS: Donepezil HCl 10 MG TAB PO SCH (19:57)
[2018-06-02] MEDS: Enoxaparin Sodium 30 MG/0.3 ML SYRINGE SC SCH (19:58)
[2018-06-03] MEDS: Furosemide 20 MG/2 ML VIAL SLOW IVP SCH (05:23)
[2018-06-03] MEDS: Multivitamin W/ Minerals 1 TAB PO SCH (09:25)
[2018-06-03] MEDS: Potassium Chloride 10 MEQ TAB PO SCH (09:25)
[2018-06-03] MEDS: Cefdinir 300 MG CAP PO SCH (09:25)
[2018-06-03] MEDS: Tamsulosin HCl 0.4 MG CAP PO SCH (09:25)
[2018-06-03] MEDS: guaiFENesin/DM ER PO SCH (09:26)
--- NOTE | 2018-06-03 09:52 | PDOC.EVN ---
Event Note - Event Note Event Note: DC SUMMARY #[id number]
[2018-06-03 10:18] LABS: #Eosinphils 0.1 thou/uL (0.0-0.7); #Monocytes 0.8 thou/uL (0.11-0.59); #Neutrophils 11.9 thou/uL (1.40-6.50); %Basophils 0.1 % (0.0-1.0); %Eosinophils 0.7 % (0.0-10.0); %Lymphocytes 7.4 % (21.0-51.0); %Monocytes 5.7 % (0.0-10.0); Hemoglobin 12.4 g/dL (14.0-18.0); Mean Corpuscular Hemoglobin 29.9 pg (27.0-31.0); Mean Corpuscular Volume 90.8 fL (78.0-98.0); Mean Platelet Volume 7.9 fL (7.4-10.4); Platelet Count 207 thou/uL (130-400); RBC Distribution Width 12.7 % (11.5-14.5); Red Blood Cell (RBC) Count 4.15 mill/uL (4.70-6.10); White Blood Cell (WBC) Count 13.9 thou/uL (4.8-10.8)
[2018-06-03 10:42] LABS: ALT (SGPT) 14 U/L (8-55); AST (SGOT) 17 U/L (5-34); Albumin 2.2 g/dL (3.4-4.8); Alkaline Phosphatase 221 U/L (40-150); Anion Gap 13 mmol/L (10-20); BUN (Urea Nitrogen) 17 mg/dL (8.4-25.7); Bilirubin, Total 0.7 mg/dL (0.2-1.2); Calc. Creatinine Clearance 52 mL/min (70-130); Calcium 7.8 mg/dL (7.8-10.44); Carbon Dioxide 28 mmol/L (23-31); Chloride 104 mmol/L (98-107); Estimated GFR-MDRD 70; Globulin 3.6 g/dL (2.4-3.5); Glucose 152 mg/dL (83-110); Potassium 3.8 mmol/L (3.5-5.1); Protein, Total 5.8 g/dL (5.8-8.1); Sodium 141 mmol/L (136-145)
[2018-06-03 12:46] VITALS: BP 130/65; TEMP 97.9
--- NOTE | 2018-06-03 13:16 | DIS ---
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 PROCEDURES PERFORMED: Cholecystectomy. HOSPITAL COURSE: This is an 88-year-old male, admitted to the Internal Medicine team, seen by Urology and Surgery, was found to have cholecystitis. He was taken to the operating room, had a surgical procedure for gallbladder removal. The patient postoperatively was stable apparently back to his baseline; however, was held because of a slight increase in his white count, which bumped up to 20 at max after which point in time, he was observed for 48 hours and more. White count had been coming down to 16. At point in time of discharge, the patient displayed no signs of sepsis. No white count upward trending. No bandemia. Respiratory rate was normal and his temperature was within normal limits. The patient upon in time of discharge was to be discharged back to his snf and given a prescription for Omnicef to be taken for 7 days. The patient otherwise was stable. Per the patient, he had no complaints or symptoms. No family at bedside. The patient to go back to his snf and follow up with PCP within 2 to 3 days. CONDITION: Stable. PROGNOSIS: Guarded. ACTIVITY: As tolerated with assistance as needed. DIET: Low-fat, low-calorie, and high-fiber diet. FOLLOWUP: Follow up with PCP in 2 to 5 days. No family at bedside. Job ID: [id number]
== END 2018-06-03 13:46 | DRG 987 ==
LOC: ERS 11:36 → ERHOLD 14:40 → T4-B 18:36
PROVIDERS: ADMIT Internal Medicine; ATTEND Internal Medicine
PROC: 0FT44ZZ Resection of Gallbladder, Percutaneous Endoscopic Approach (ICD-10-PCS; principal; 2018-05-25)
DX: T83.511A Infection and inflammatory reaction due to indwelling urethral catheter, initial encounter (principal); A41.59 Other Gram-negative sepsis; G93.41 Metabolic encephalopathy; K80.10 Calculus of gallbladder with chronic cholecystitis without obstruction; N17.9 Acute kidney failure, unspecified; E87.0 Hyperosmolality and hypernatremia; G30.9 Alzheimer's disease, unspecified; I25.5 Ischemic cardiomyopathy; Z66 Do not resuscitate; B96.4 Proteus (mirabilis) (morganii) as the cause of diseases classified elsewhere; F02.80 Dementia in other diseases classified elsewhere, unspecified severity, without behavioral disturbance, psychotic disturbance, mood disturbance, and anxiety; Z95.0 Presence of cardiac pacemaker; C44.601 Unspecified malignant neoplasm of skin of unspecified upper limb, including shoulder; I25.10 Atherosclerotic heart disease of native coronary artery without angina pectoris; E87.6 Hypokalemia; R33.9 Retention of urine, unspecified; I10 Essential (primary) hypertension; M19.90 Unspecified osteoarthritis, unspecified site; Y84.6 Urinary catheterization as the cause of abnormal reaction of the patient, or of later complication, without mention of misadventure at the time of the procedure
CPT/HCPCS: 36415; 36416; 70450; 71045; 74176; 80048; 80053; 80076; 80202; 81003; 81015; 82550; 83605; 85025; 85060; 87040; 87077; 87086; 87149; 87186; 88304; 90471; 90662; 93005; 96365; 96368; G0008; J0670; J0696; J1200; J1580; J1630; J1650; J1940; J2001; J2185; J2704; J3010; J3370; J3490; J7050; Q0163

== ENCOUNTER 2018-07-17 14:11 | Inpatient (IN) | payer MEDICARE, MEDICAID ==
[~2018-07-17 14:11] MED LIST: ISOVUE-370 76%-LOCM 1 ML ONE
[2018-07-17 14:49] LABS: #Lymphocytes 0.8 thou/uL (1.20-3.40); #Monocytes 0.6 thou/uL (0.11-0.59); #Neutrophils 11.8 thou/uL (1.40-6.50); %Basophils 0.2 % (0.0-1.0); %Eosinophils 0.2 % (0.0-10.0); %Lymphocytes 5.7 % (21.0-51.0); %Monocytes 4.5 % (0.0-10.0); %Neutrophils 89.3 % (42.0-75.0); Hemoglobin 9.1 g/dL (14.0-18.0); Mean Corpuscular HGB CONC 31.3 g/dL (32.0-36.0); Mean Corpuscular Hemoglobin 27.7 pg (27.0-31.0); Mean Corpuscular Volume 88.5 fL (78.0-98.0); Mean Platelet Volume 6.8 fL (7.4-10.4); Platelet Count 350 thou/uL (130-400); RBC Distribution Width 13.2 % (11.5-14.5); Red Blood Cell (RBC) Count 3.27 mill/uL (4.70-6.10); White Blood Cell (WBC) Count 13.2 thou/uL (4.8-10.8)
[2018-07-17 14:53] LABS: INR-International Normal Ratio 1.2; PTT 29.8 SEC (22.9-36.1); Prothrombin Time 15.4 SEC (12.0-14.7)
[2018-07-17 15:02] LABS: ALT (SGPT) Less than 7 U/L (8-55); AST (SGOT) 10 U/L (5-34); Albumin 2.6 g/dL (3.4-4.8); Alkaline Phosphatase 160 U/L (40-150); Anion Gap 13 mmol/L (10-20); BUN (Urea Nitrogen) 33 mg/dL (8.4-25.7); Calc. Creatinine Clearance 0 mL/min (70-130); Calcium 8.7 mg/dL (7.8-10.44); Carbon Dioxide 27 mmol/L (23-31); Chloride 111 mmol/L (98-107); Estimated GFR-MDRD 62; Glucose 184 mg/dL (83-110); Potassium 4.5 mmol/L (3.5-5.1); Protein, Total 6.6 g/dL (5.8-8.1); Sodium 146 mmol/L (136-145)
--- NOTE | 2018-07-17 15:43 | CT ---
CT ABDOMEN AND PELVIS WITH IV CONTRAST: Date: 07/17/18 HISTORY: Abdominal pain and pain in right testicle. Cheung change this morning. FINDINGS: Comparison made with a noncontrasted study of 05/24/18. There are dependent changes versus mild infiltrates at the lung bases. Interval postop changes of cho lecystectomy are seen. There is artifact on the exam which reduces the sensitivity of the study. The liver, spleen, pancreas, adrenal glands, and right kidney appear unremarkable. Cysts in the left kidney are again noted. No free air, free fluid, or lymphadenopathy seen in the abdomen or pelvis. There are vascular calcifi cations without evidence of aneurysmal dilatation of the abdominal aorta. There is fecal material in the colon and rectum. There is a Cheung catheter and air in the urinary bladder. Bilateral hydroceles are present. Numerous sclerotic metastatic lesions are seen in the skeleton. There is a left hip arthroplasty. Deg enerative changes and postsurgical changes in the lumbar spine are again noted. IMPRESSION: 1. Bibasilar infiltrates versus atelectatic changes. 2. Interval changes of cholecystectomy since 05/24/18. 3. Left renal cyst. 4. Constipation. 5. Diffuse sclerotic osseous metastatic disease. 6. Bilateral hydroceles. POS: [facility]
[2018-07-17 16:40] LABS: Bilirubin Small (Negative); Blood, Urine Moderate (Negative); Clarity TURBID (Clear); Glucose, Urine (Dipstick) Negative (Negative); Leukocyte Large (Negative); Nitrite Negative (Negative); Protein, Urine (Dipstick) 100 mg/dL (Neg-Trace)
--- NOTE | 2018-07-17 16:40 | RAD ---
PORTABLE CHEST ONE VIEW: 07/17/18 at 4:25 p.m. HISTORY: 88-year-old male with acute onset of pain to the right testicle. FINDINGS: Comparison made to exam of 06/01/18. The heart size is normal. The aorta is tortuous. Left sided pacemaker device is again seen. The lungs are expanded without focal areas of consolidation, pneumothoraces or pleural effusions. There are de generative changes in the right shoulder joint. A left humeral head prosthesis is noted. IMPRESSION: No acute process. POS: [facility]
[2018-07-17 16:43] LABS: Squamous Epithelial 0-3 HPF (0-3)
[2018-07-17 16:48] LABS: Pathc Cast-AUWi Flag 19.53 (0-2.49); Yeast-AUWi Flag 727.2 (0-25.0)
[2018-07-17 16:54] LABS: Specific Gravity, Urine 1.052 (1.002-1.036)
[2018-07-17 17:01] LABS: Bacteria/HPF 3+ HPF (None Seen); Hyaline Casts/LPF NONE SEEN LPF (0-3 Hyaline); Manual Microscopic Reviewed? No Path Casts Seen; Yeast-All Forms 2+ HPF (None Seen)
[2018-07-17] MEDS ORDERED: cefTRIAXone\\ROCEPHIN 2 GM VIAL ONE (17:19)
[2018-07-17] MEDS ORDERED: Morphine 4 MG/ML VIAL ONE (17:19)
[2018-07-17] MEDS ORDERED: Sodium Chloride 0.9% 100 ML ONE (17:19)
--- NOTE | 2018-07-17 17:52 | ULT ---
SCROTAL SONOGRAM WITH DUPLEX EVALUATION: 07/17/18 HISTORY: Testicular pain and swelling. FINDINGS: Each testicle is 2.7 cm in length. No focal masses. Good color and spectral doppler flow. Large amount of fluid throughout each side of the scrotum. No solid masses are visible. There is subtle echogenicity within the fluid of the right side of the scrotum. IMPRESSION: No evidence of testicular mass or torsion. Large bilateral hydroceles, slightly complex on the right. Cause is not apparent. POS: [facility]
[2018-07-17] MEDS ORDERED: Ondansetron ODT 4 MG TAB PO PRN (19:59)
[2018-07-17] MEDS ORDERED: Acetaminophen 325 MG TAB PO PRN (19:59)
[2018-07-17] MEDS ORDERED: Ondansetron PF 4 MG/2 ML Vial IVP PRN (19:59)
[2018-07-17] MEDS ORDERED: Phenazopyridine HCl 97.5 MG TABLET PO PRN (20:03)
[2018-07-18] MEDS: Donepezil HCl 10 MG TAB PO SCH ×2 (00:22→20:37)
--- NOTE | 2018-07-18 00:46 | HP ---
PRIMARY CARE DOCTOR: Loida Robin DO CODE STATUS: As of now is full code, has not been verified any DNR/DNI by myself. This will need to be followed up later. TIME OF EVALUATION: 7:45 p.m. CHIEF COMPLAINT: Seems to be testicular pain. The patient has dementia, noncooperative to interview. Information has been gathered from staff and from the records. HISTORY OF PRESENT ILLNESS: This is an 88-year-old male patient with past medical history of pacemaker, Alzheimer disease, hypertension, urinary retention, came to the hospital after having testicular pain, the symptoms were severe with no clear triggers, no alleviating factors. Ultrasound of the testicles show hydrocele with no compromise of circulation of the testicles. The patient has a urinary catheter. REVIEW OF SYSTEMS: Unable to obtain since the patient has dementia, noncooperative to interview. PAST MEDICAL HISTORY: The patient has a medical history that was reported in HPI. SURGICAL HISTORY: Prior lumbar back surgery and pacemaker. PSYCH HISTORY: No previous psych history. SOCIAL HISTORY: No alcohol use. No drug use. No smoking history. FAMILY HISTORY: Unable to review, not in our records. ALLERGIES: NO KNOWN DRUG ALLERGIES REPORTED. MEDICATIONS: 1. Flomax. 2. Mucinex. 3. Potassium chloride. 4. Tylenol. 5. [place]. PHYSICAL EXAMINATION: VITAL SIGNS: Blood pressure 94/63 with heart rate 89, respiratory rate is 18, temperature 98.1, and oxygen saturation 98% on room air. GENERAL APPEARANCE: The patient is alert, disoriented, not in acute distress. HEENT: Eyes, normal conjunctivae. Moist oral mucosa. Anicteric. No JVD. RESPIRATORY: Bilateral air entry. No rales. No wheezes. Symmetric expansion. CARDIOVASCULAR: Normal rate, regular rhythm. No murmurs. No gallop. No edema. ABDOMEN: Soft. Normal bowel sounds. The patient seems to be reacting to the abdominal examination and testicular examination with pain, however, there is no rigidity, no rebound. MUSCULOSKELETAL: The patient has a cast on the right foot, that was placed before coming to the hospital. The rest seems to be at baseline. SKIN: Warm, intact. No pallor. No rash. No redness. Peripheral pulses are present. Capillary refill seems to be intact. NEURO: No evidence of any new focal weakness. Baseline speech. Cranial nerves seems to be intact. PSYCH: The patient is in mild distress due to discomfort, mild anxiety. Suboptimal judgment due to dementia. Testicular ultrasound, no evidence of testicular mass or torsion. Large bilateral hydrocele, is slightly complex on the right. Cause is not apparent. Chest x-ray, no acute process. Abdomen and pelvis CT bibasilar infiltrates versus atelectatic changes. Interval changes of cholecystectomy. LABORATORY DATA: Reviewed. The patient has white count 13.2, hemoglobin 9.1, MCV 88.5, platelet count 350. Coagulation; PT 15.4, INR 1.2, PTT 29.8. Sodium 146, potassium 4.5, chloride 111, carbon dioxide 27, anion gap 13, BUN 33, creatinine 1.12, GFR 62, glucose 184, lactic acid 1.1, calcium 9.7, total bilirubin 1.0, AST 10, ALT less than 7, alkaline phosphatase 116, albumin , globulin 4.0, albumin to globulin ratio 0.7. The urine was done, and the patient has large leukocyte esterase, white count greater than 50. ASSESSMENT AND PLAN: The patient will be placed in the hospital with following medical problems: 1. Urinary tract infection. The patient has very positive urine, started on Rocephin, follow cultures. We will adjust treatment as per sensitivity. 2. Leukocytosis with white count 13.2, could be secondary to urinary tract infection. We will monitor. No other signs for sepsis. 3. Abdominal pain and possible scrotal pain. The patient cannot cooperate with the BUS, so we are just going by our physical exam. CT abdomen and pelvis negative. We will monitor. We will treat symptomatically as of now. 4. Hypernatremia. Sodium 146. The patient may need some hydration; this seems to be acute. We will monitor sodium level. We will adjust IV fluids as needed. 5. Contraction alkalosis. The patient has increased carbon dioxide, with elevated BUN, secondary to dehydration. We will hydrate. We will monitor. 6. Hyperglycemia. No history of diabetes, could be secondary to acute physical distress, we will monitor, we will treat accordingly. 7. Deep venous thrombosis prophylaxis. 8. Dementia. The patient will need supportive care as inpatient. Job ID: [id number]
[2018-07-18 05:20] LABS: Anion Gap 13 mmol/L (10-20); BUN (Urea Nitrogen) 28 mg/dL (8.4-25.7); Calc. Creatinine Clearance 46 mL/min (70-130); Calcium 8.6 mg/dL (7.8-10.44); Carbon Dioxide 25 mmol/L (23-31); Chloride 112 mmol/L (98-107); Estimated GFR-MDRD 75; Glucose 125 mg/dL (83-110); Potassium 4.1 mmol/L (3.5-5.1); Sodium 146 mmol/L (136-145)
[2018-07-18 05:54] LABS: Band 2 % (5-11); Hemoglobin 8.2 g/dL (14.0-18.0); Lymphocytes 9 % (21-51); MDiff Complete? YES; Mean Corpuscular HGB CONC 30.4 g/dL (32.0-36.0); Mean Corpuscular Hemoglobin 27.5 pg (27.0-31.0); Mean Corpuscular Volume 90.6 fL (78.0-98.0); Monocytes 5 % (0-10); Neutrophil 84 % (42-75); Platelet Count 307 thou/uL (130-400); Platelet Morphology Comment Appears Adequate; RBC Distribution Width 13.5 % (11.5-14.5); Red Blood Cell (RBC) Count 2.96 mill/uL (4.70-6.10); White Blood Cell (WBC) Count 10.8 thou/uL (4.8-10.8)
[2018-07-18] MEDS: Enoxaparin Sodium 40 MG/0.4 ML SYRINGE SC SCH (09:29)
[2018-07-18 11:58] VITALS: BMI 20.9
[2018-07-18] MEDS ORDERED: Morphine 2 MG/ML SYRINGE SLOW IVP PRN (12:14)
[2018-07-18] MEDS: Tamsulosin HCl 0.4 MG CAP PO SCH (13:13)
[2018-07-18] MEDS: Potassium Chloride 10 MEQ TAB PO SCH (13:13)
[2018-07-18] MEDS ORDERED: cefTRIAXone\\ROCEPHIN 1 GM in Sodium Chloride 0.9% 100 ML IVPB SCH (17:00)
[2018-07-18] MEDS: Morphine 4 MG/ML VIAL SLOW IVP PRN (18:13)
--- NOTE | 2018-07-18 18:41 | RAD ---
RIGHT FOREARM TWO VIEWS: 07/18/18 HISTORY: Right arm pain. FINDINGS: Radius and ulna are intact. A subtle oblique linear lucency through the distal radius mid portion on the frontal view does not disrupt the articular surface cortex and is favored to represent artifact o r possibly a vascular canal. No acute fracture or dislocation are apparent. Mild degenerative changes of the elbow and wrist. IMPRESSION: No acute osseous abnormalities are demonstrated. POS: [facility]
--- NOTE | 2018-07-18 18:42 | RAD ---
RIGHT HUMERUS TWO VIEWS: 07/18/18 HISTORY: Right arm pain. FINDINGS: Osteophytosis and mild heterotopic ossification about the shoulder. Humerus is intact. No acute fract ure or dislocation. IMPRESSION: Degenerative changes of the shoulder. No acute osseous abnormalities are demonstrated. POS: [facility]
--- NOTE | 2018-07-18 18:55 | PRG ---
DATE OF SERVICE: 07/18/2018 SUBJECTIVE: Mr. Rice is an unfortunate 88-year-old male with history of quite advanced Alzheimer dementia, known urinary retention with indwelling Cheung catheter, hypertension, and history of pacemaker implant, who was presented from his [facility] with testicular pain and swelling. He has been admitted with acute UTI, as well as bilateral hydroceles. The patient on my interview is doing some moaning. His speech is mostly unintelligible, although he is clearly complaining of pain, although he cannot quite explain where. At this time per nursing staff and speach therapist, the patient is refusing to swallow pills or food at this time. OBJECTIVE: VITAL SIGNS: Blood pressure 114/55, temperature 97.7, pulse is 80, respiratory rate 16, and O2 saturation 96% on room air. GENERAL: The patient is a very thin male, resting in bed, he is currently unable to answer questions appropriately, which does appear to be his baseline. He appears to be in some distress secondary to pain. HEENT: Head; atraumatic, normocephalic. NECK: Trachea is midline. No JVD. No carotid bruits. CV: S1 and S2. Regular rate and rhythm. No appreciable murmurs, rubs, or gallops. LUNGS: Regular respiratory rate and pattern, overall clear to auscultation bilaterally. ABDOMEN: Soft. Positive bowel sounds. He does have surgical scars, status post laparoscopic cholecystectomy last month that did appear well healed, nontender. EXTREMITIES: No edema. +2 peripheral pulses. : Cheung catheter is in place. His testicles appear erythematous, with edema. He is very tender to any palpation. LABORATORY DATA: White blood cell 10.8, which is trended down from initial value of 13.2, hemoglobin 8.2, and hematocrit 26.8. Sodium 146, potassium 4.1, chloride 112, carbon dioxide 25, anion gap 13, BUN 28, creatinine 0.95, and glucose 125. ASSESSMENT: 1. Testicular pain, questionably secondary to large bilateral hydroceles, no evidence of torsion per ultrasound. 2. Pet CT of abdomen and pelvis, bone lesions c/w metastasis present 3. Urinary tract infection. 4. Known urinary retention with indwelling Cheung catheter. 5. Advanced dementia. 6. Right arm pain. 7. Dysphagia--chronic requiring pureed diet. 8. History of pacemaker. PLAN: At this time, it is hard to discern the source of the patient's pain, since he cannot give any history. We will try to control his pain with IV medication as well as consult Urology for any further recommendations. Per nursing staff, his right arm is very tender and it is unclear if he is injured this arm, but we will go ahead and obtain imaging/x-rays of his right humerus and forearm. This patient will likely benefit from palliative care and possibly hospice given CT findings of bone lesions, and we will attempt to reach family and moving forward. Care has been discussed with Dr. Taylor who agrees with the above. Further recommendations based on hospital course. Job ID: [id number] MTDD
--- NOTE | 2018-07-18 20:35 | CON ---
DATE OF CONSULTATION: 07/18/2018 REASON FOR CONSULTATION: Scrotal edema or scrotal mass. HISTORY: Mr. Rice is an 88-year-old gentleman with dementia. I have seen him on two prior hospitalizations. He has been in urinary retention since my initial visit in 03/2018. Apparently, he was brought in from [facility] with left testicular pain. I am unsure how they determined his complaint to be testicular pain as he is not conversant. In any regard, he underwent a scrotal ultrasound that demonstrates that the testicles are normal. He does have hydroceles bilaterally. Interestingly, he also underwent CT scan that demonstrated sclerotic lesions of the bones thought to be a result of metastatic disease. To my knowledge, he has no known history of malignancy. PAST MEDICAL HISTORY: Dementia, hypertension, abnormal heart rhythm, osteoarthritis. PAST SURGICAL HISTORY: Pacemaker, cholecystectomy in 05/2018. MEDICATIONS: Please see chart. SOCIAL HISTORY: Lives in a fdc. The patient has not had family visiting as far as I am aware. ALLERGIES: NO KNOWN DRUG ALLERGIES. REVIEW OF SYSTEMS: The patient unable to provide review of systems. PHYSICAL EXAMINATION: GENERAL: He is awake and alert. He is moaning, although there is no notable source of discomfort. HEENT: Normocephalic, atraumatic. NECK: Supple. CHEST: Clear. ABDOMEN: Soft, nontender. No peritoneal signs. : Penis is circumcised. He has a Cheung catheter in place. Scrotum demonstrates bilateral hydroceles. No skin changes to suggest infection. EXTREMITIES: No edema noted. LABORATORY: White count 13.2, hemoglobin 9.1, hematocrit 29, creatinine 1.12. Urine 2+ yeast, 3+ bacteria. CT scan, no hydronephrosis. No lymphadenopathy. There are sclerotic changes of the bone, worrisome for widespread metastatic disease. IMPRESSION: Mr. Riec is an 88-year-old gentleman with urinary retention. His urinalysis consistent with infection as would be expected with an indwelling Cheung catheter. It is difficult to determine the source of his complaints. There are no focal findings to suggest he is in pain in a particular area. On his scrotal exam, he does have findings consistent with hydroceles bilaterally. There are no skin changes to suggest cellulitis or abscess. The test was demonstrated good blood flow on ultrasonography. Abnormal findings on CT suggesting metastatic disease, PSA has been ordered RECOMMENDATIONS: PSA ordered. No additional recommendations at this time. Job ID: [id number]
[2018-07-18] MEDS: Sodium Chloride 0.9% 1,000 ML IV SCH (20:37)
[2018-07-19] MEDS: Morphine 4 MG/ML VIAL SLOW IVP PRN ×5 (02:00→23:05)
[2018-07-19 06:55] LABS: Anion Gap 15 mmol/L (10-20); BUN (Urea Nitrogen) 29 mg/dL (8.4-25.7); Calc. Creatinine Clearance 47 mL/min (70-130); Calcium 9.2 mg/dL (7.8-10.44); Carbon Dioxide 22 mmol/L (23-31); Chloride 114 mmol/L (98-107); Estimated GFR-MDRD 77; Glucose 188 mg/dL (83-110); Potassium 3.6 mmol/L (3.5-5.1); Sodium 147 mmol/L (136-145)
[2018-07-19 07:03] LABS: Hemoglobin 9.2 g/dL (14.0-18.0); Hypochromia SLIGHT = 6-15 cells (100X) (0-5/hpf); Lymphocytes 7 % (21-51); MDiff Complete? YES; Mean Corpuscular HGB CONC 31.2 g/dL (32.0-36.0); Mean Corpuscular Hemoglobin 27.8 pg (27.0-31.0); Mean Corpuscular Volume 89.3 fL (78.0-98.0); Monocytes 2 % (0-10); Neutrophil 91 % (42-75); Platelet Count 389 thou/uL (130-400); Platelet Morphology Comment Appears Adequate; RBC Distribution Width 13.6 % (11.5-14.5); White Blood Cell (WBC) Count 13.2 thou/uL (4.8-10.8)
[2018-07-19] MEDS: Sodium Chloride 0.9% 1,000 ML IV SCH ×2 (09:32→23:04)
[2018-07-19] MEDS: Tamsulosin HCl 0.4 MG CAP PO SCH (09:38)
[2018-07-19] MEDS: Potassium Chloride 10 MEQ TAB PO SCH (09:38)
[2018-07-19] MEDS: Enoxaparin Sodium 40 MG/0.4 ML SYRINGE SC SCH (09:48)
--- NOTE | 2018-07-19 11:39 | CT ---
CT CHEST WITH CONTRAST: Technique: Multiple axial tomograms were obtained through the chest with IV enhancement. Indications: Bone metastasis. 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 Joby elation is made to a chest CT of 09-15-14. FINDINGS: The lungs are well aerated. No infiltrate. Mild atelectatic change in the posterior lung bases with p arenchymal stranding and scarring which appears chronic. Some linear opacity in the lingula suggests focal atelectasis although subtle infiltrate at this location cannot be excluded. Lung cary otherwise appear clear with no evidence of pulmonary mass or nodule. The mediastinum is u nremarkable. Review of osseous structures show numerous metallic lesions involving the thoracic spine. There appea rs to be involvement of all visualized thoracic vertebrae. Severe involvement is seen involving the T 12 and T11 vertebra. Moderately severe involvement involving the T5 and T7 vertebra with numerous oth er mets involving all thoracic vertebra. There are scattered areas of sclerosis involving numerous ri bs. Severe degenerative changes at the right shoulder. A left shoulder prosthesis is seen. IMPRESSION: 1. Diffuse osseous metastatic lesions involving the bony thorax. Numerous thoracic vertebral body and rib lesions are seen. 2. Chronic appearing lung parenchymal changes as described. POS: [facility]
[2018-07-19] MEDS ORDERED: ISOVUE-370 76%-LOCM 1 ML ONE (14:28)
--- NOTE | 2018-07-19 16:11 | PDOC.PN ---
- Subjective Encounter Start Date: 07/19/18 Encounter Start Time: 08:40 Pt seen for followup re: bone metastases. Moaning, not able to answer questions , could not complete ROS. - Objective Resuscitation Status - Order Detail: 07/18/18 17:28 Resuscitation Status Routine Co-Sign Provider: Resuscitation Status: DNAR: NO Resuscitation Discussed with: per documentation MAR Reviewed: Yes Vital Signs & Weight: Vital Signs (12 hours) Temp Pulse Resp BP Pulse Ox 07/19/18 08:00 97.6 F 66 20 149/72 H 100 Weight Admit Weight 129 lb 9.6 oz Weight 129 lb 9.6 oz I&O: 07/18/18 07/19/18 07/20/18 06:59 06:59 06:59 Intake Total 770 Output Total 350 250 Balance -350 520 Result Diagrams: 07/19/18 06:03 07/19/18 06:03 Additional Labs: Labs reviewed by me Phys Exam - Physical Examination Constitutional: NAD HEENT: moist MMs Neck: supple Respiratory: clear to auscultation bilateral Cardiovascular: RRR Gastrointestinal: soft hydrocele Neurological: moves all 4 limbs Deviation from normal: Unable to assess Dx/Plan (1) Bone metastases Code(s): C79.51 - SECONDARY MALIGNANT NEOPLASM OF BONE Status: Acute (2) Fungus present in urine Code(s): B49 - UNSPECIFIED MYCOSIS Status: Acute Comment: Discontinue antibiotics (3) Prostate cancer Code(s): C61 - MALIGNANT NEOPLASM OF PROSTATE Status: Suspected Comment: PSA is elevated (4) Hypernatremia Code(s): E87.0 - HYPEROSMOLALITY AND HYPERNATREMIA Status: Acute Comment: change fluids to D5 1/2 NS with potassium (5) Hypertension Code(s): I10 - ESSENTIAL (PRIMARY) HYPERTENSION Status: Chronic Comment: Monitor vital signs, titrate antihypertensives as needed (6) Urinary retention Code(s): R33.9 - RETENTION OF URINE, UNSPECIFIED Status: Chronic Comment: s/ p Skye (7) Alzheimer's dementia Code(s): G30.9 - ALZHEIMER'S DISEASE, UNSPECIFIED; F02.80 - DEMENTIA IN OTH DISEASES CLASSD ELSWHR W/O BEHAVRL DISTURB Status: Chronic - Plan * . Attempted to reach family members by phone, could not. Review of Systems - Medications/Allergies Allergies/Adverse Reactions: Allergies Allergy/AdvReac Type Severity Reaction Status Date / Time No Known Drug Allergies Allergy Verified 04/28/14 20:53 Medications: Current Medications Acetaminophen (Tylenol) 650 mg PO Q4H PRN PRN Reason: Headache/Fever/Mild Pain (1-3) Hydrocodone Bitart/Acetaminophen ([place] 5/325) 1 tab PO Q4H PRN PRN Reason: Pain Donepezil HCl (Aricept) 5 mg PO HS ON LICENSE OF [facility] Last Admin: 07/18/18 20:37 Dose: 5 mg Enoxaparin Sodium (Lovenox) 40 mg SC 0900 ON LICENSE OF [facility] Last Admin: 07/19/18 09:48 Dose: 40 mg Ceftriaxone Sodium 1 gm/ (Sodium Chloride) 100 mls @ 200 mls/hr IVPB Q24HR ON LICENSE OF [facility] Last Admin: 07/18/18 18:13 Dose: 100 mls Sodium Chloride (Normal Saline 0.9%) 1,000 mls @ 70 mls/hr IV .[id number] ON LICENSE OF [facility] Last Admin: 07/19/18 09:32 Dose: 1,000 mls Morphine Sulfate (Morphine) 4 mg SLOW IVP Q4H PRN PRN Reason: Pain Last Admin: 07/19/18 09:31 Dose: 4 mg Ondansetron HCl (Zofran Odt) 4 mg PO Q6H PRN PRN Reason: Nausea/Vomiting Ondansetron HCl (Zofran) 4 mg IVP Q6H PRN PRN Reason: Nausea/Vomiting Phenazopyridine HCl (Azo Standard) 195 mg PO TID PRN PRN Reason: Bladder Spasms Potassium Chloride (Klor-Con 10) 10 meq PO QAM-WM ON LICENSE OF [facility] Last Admin: 07/19/18 09:38 Dose: 10 meq Sodium Chloride (Flush - Normal Saline) 10 ml IVF Q12HR ON LICENSE OF [facility] Last Admin: 07/19/18 09:34 Dose: 10 ml Sodium Chloride (Flush - Normal Saline) 10 ml IVF PRN PRN PRN Reason: Saline Flush Tamsulosin HCl (Flomax) 0.4 mg PO DAILY ON LICENSE OF [facility] Last Admin: 07/19/18 09:38 Dose: 0.4 mg Tramadol HCl (Ultram) 50 mg PO Q6HR PRN PRN Reason: Moderate Pain (4-6)
--- NOTE | 2018-07-19 16:18 | PQF ---
CLINICAL DOCUMENTATION IMPROVEMENT CLARIFICATION FORM: ICD-10 Updated PLEASE DO AN ADDENDUM TO THE PROGRESS NOTE WITH ANY DOCUMENTATION UPDATES OR ADDITIONS AND CARRY THROUGH TO DC SUMMARY. THANK YOU. DATE: 07/19/2018 ATTN: Dr. Boland Please exercise your independent, professional judgment in responding to the clarification form. Clinical indicators are provided on the bottom of this form for your review Please check appropriate box(s): [ X ] I (concur) with the Wound Care findings as stated below. [ ] Pressure Ulcer: (Stage I: Erythema; Stage II: Partial thickness; Stage III : Full thickness; Stage IV: Necrosis to muscle/bone) [ ] Location: POA: [ ] Yes [ ] No[ ] Unable to determine Stage (I to IV): __ (Left__Right__Bilateral___N/A__) [ ] Location: POA: [ ] Yes [ ] No [ ] Unable to determine Stage (I to IV): __ (Left__Right___Bilateral__N/A__) [ ] Other diagnosis [ ] Unable to determine In addition, please specify: Present on Admission (POA): [ ] Yes [ ] No [ ] Unable to determine For continuity of documentation, please document condition throughout progress notes and discharge summary. Thank You. CLINICAL INDICATORS - SIGNS / SYMPTOMS / LABS Wound Care Assessment 07/18: Sacrum pressure ulcer Stage III RISKS: H&P 07/17: 88 yo with past medical hx of Alzheimer disease, HTN, urinary retention. Urinary tract infection. TREATMENT: Order 07/18: Wound Care Eval/Treat Pre-ulcer skin changes limited to persistent focal edema (Stage 1) Abrasion, blister, partial thickness skin loss involving epidermis and/or dermis (Stage 2) Full thickness skin loss involving damage or necrosis of SQ tissue. (Stage 3) Necrosis of soft tissue through to underlying muscle, tendon, or bone. (Stage 4) Purple or maroon discolored skin or blood filled blister Thank you, Leisa (This form is maintained as a part of the permanent medical record) 2015 [employer]. All Rights Reserved Leisa Harrington RN, BSN [email or web address] Office: [phone] [facility]
[2018-07-19] MEDS: 1/2 NS w/KCL 20 mEq 1,000 ML IV SCH (18:03)
[2018-07-19] MEDS: Donepezil HCl 10 MG TAB PO SCH (20:18)
--- NOTE | 2018-07-19 20:36 | PRG ---
DATE OF SERVICE: 07/19/2018 SUBJECTIVE: The patient continues to moan without any discrete location of discomfort or pain. OBJECTIVE: VITAL SIGNS: Temperature 97.6, pulse 66, respiratory rate 20, O2 saturation 100% on room air, blood pressure 149/72. ABDOMEN: Soft, nontender. No palpable masses. : A Cheung catheter in place draining clear yellow urine. Scrotum, no changes , bilateral hydroceles. PSA 800. IMPRESSION: Mr. Rice is an 88-year-old gentleman with dementia and little or no social support. He has findings on chest CT, abdominal CT, and laboratory PSA testing consistent with widespread incurable metastatic prostate cancer. The recommended treatment is hormone ablation therapy typically administered by Lupron injections on every 3 or 6 month basis. Because of the widespread disease, anti-androgen should be initiated first (Casodex). This is a complex situation as this patient has little or no family support, he is unable to make decisions for himself, he has an incurable cancer and a poor quality of life. The difficult decision becomes whether or not he should be treated to prolong his life for this disease by the utilization of hormone therapy or if he should be managed with palliation and pain control alone. While the hormone therapy is likely to improve his pain temporarily and also prolong his life for several months to a couple of years, his life expectancy based on prostate CA alone is 1-2 year even with treatment RECOMMENDATIONS: 1. Palliative care consultation. 2. Begin casodex in case adolescent specialist recommended proceeeding with Lupron therapy. Job ID: [id number] MTDD
[2018-07-20] MEDS: Morphine 4 MG/ML VIAL SLOW IVP PRN ×4 (04:34→17:09)
[2018-07-20] MEDS: 1/2 NS w/KCL 20 mEq 1,000 ML IV SCH (05:45)
[2018-07-20] MEDS: Tamsulosin HCl 0.4 MG CAP PO SCH (08:58)
[2018-07-20] MEDS: Enoxaparin Sodium 40 MG/0.4 ML SYRINGE SC SCH (08:58)
[2018-07-20] MEDS: Potassium Chloride 10 MEQ TAB PO SCH (08:58)
[2018-07-20] MEDS: Bicalutamide 50 MG TAB PO SCH (08:59)
[2018-07-20] MEDS: HYDROcodone/Acetaminophen 5/325 mg Tablet PO PRN (16:06)
[2018-07-20] MEDS: Sodium Chloride 0.9% 1,000 ML IV SCH (17:12)
--- NOTE | 2018-07-20 18:13 | PDOC.PN ---
- Subjective Encounter Start Date: 07/20/18 Encounter Start Time: 09:00 Pt seen for followup re: bone mets. Nonverbal, unable to complete ROS. - Objective Resuscitation Status - Order Detail: 07/18/18 17:28 Resuscitation Status Routine Co-Sign Provider: Resuscitation Status: DNAR: NO Resuscitation Discussed with: per documentation MAR Reviewed: Yes Vital Signs & Weight: Vital Signs (12 hours) Temp Pulse Resp BP Pulse Ox 07/20/18 08:18 98.0 F 76 22 H 160/70 H 99 07/20/18 08:00 99 Weight Admit Weight 129 lb 9.6 oz Weight 129 lb 9.6 oz I&O: 07/19/18 07/20/18 07/21/18 06:59 06:59 06:59 Intake Total 770 Output Total 250 600 Balance 520 -600 Result Diagrams: 07/19/18 06:03 07/19/18 06:03 Additional Labs: Labs reviewed by me Phys Exam - Physical Examination Constitutional: NAD HEENT: moist MMs Neck: supple Respiratory: clear to auscultation bilateral Cardiovascular: RRR Gastrointestinal: soft hydrocele Neurological: moves all 4 limbs Deviation from normal: Could not assess Dx/Plan (1) Bone metastases Code(s): C79.51 - SECONDARY MALIGNANT NEOPLASM OF BONE Status: Acute Comment : Likely from prostate cancer. (2) Fungus present in urine Code(s): B49 - UNSPECIFIED MYCOSIS Status: Acute Comment: No need to treat (3) Prostate cancer Code(s): C61 - MALIGNANT NEOPLASM OF PROSTATE Status: Suspected Comment: PSA is elevated (4) Hypernatremia Code(s): E87.0 - HYPEROSMOLALITY AND HYPERNATREMIA Status: Acute Comment: change fluids to Lactated Ringers with potassium (pt is also hyperchloremic) (5) Hypertension Code(s): I10 - ESSENTIAL (PRIMARY) HYPERTENSION Status: Chronic Comment: titrate antihypertensives as needed (6) Urinary retention Code(s): R33.9 - RETENTION OF URINE, UNSPECIFIED Status: Chronic Comment: s/ p Skye (7) Alzheimer's dementia Code(s): G30.9 - ALZHEIMER'S DISEASE, UNSPECIFIED; F02.80 - DEMENTIA IN OTH DISEASES CLASSD ELSWHR W/O BEHAVRL DISTURB Status: Chronic - Plan * . Review of Systems - Medications/Allergies Allergies/Adverse Reactions: Allergies Allergy/AdvReac Type Severity Reaction Status Date / Time No Known Drug Allergies Allergy Verified 04/28/14 20:53 Medications: Current Medications Acetaminophen (Tylenol) 650 mg PO Q4H PRN PRN Reason: Headache/Fever/Mild Pain (1-3) Hydrocodone Bitart/Acetaminophen ([place] 5/325) 1 tab PO Q4H PRN PRN Reason: Pain Last Admin: 07/20/18 16:06 Dose: 1 tab Bicalutamide (Casodex) 50 mg PO DAILY [facility] Last Admin: 07/20/18 08:59 Dose: 50 mg Donepezil HCl (Aricept) 5 mg PO HS [facility] Last Admin: 07/19/18 20:18 Dose: 5 mg Enoxaparin Sodium (Lovenox) 40 mg SC 0900 [facility] Last Admin: 07/20/18 08:58 Dose: 40 mg Sodium Chloride (Normal Saline 0.9%) 1,000 mls @ 70 mls/hr IV .[id number] [facility] Last Admin: 07/20/18 17:12 Dose: Not Given Potassium Chloride 20 meq/ (Lactated Ringer's) 1,010 mls @ 75 mls/hr IV .[id number] [facility] Ketorolac Tromethamine (Toradol) 15 mg IVP Q6H PRN PRN Reason: Pain Stop: 07/25/18 17:55 Morphine Sulfate (Morphine) 4 mg SLOW IVP Q4H PRN PRN Reason: Pain Last Admin: 07/20/18 17:09 Dose: 4 mg Ondansetron HCl (Zofran Odt) 4 mg PO Q6H PRN PRN Reason: Nausea/Vomiting Ondansetron HCl (Zofran) 4 mg IVP Q6H PRN PRN Reason: Nausea/Vomiting Phenazopyridine HCl (Azo Standard) 195 mg PO TID PRN PRN Reason: Bladder Spasms Potassium Chloride (Klor-Con 10) 10 meq PO QAM-WM [facility] Last Admin: 07/20/18 08:58 Dose: 10 meq Sodium Chloride (Flush - Normal Saline) 10 ml IVF Q12HR [facility] Last Admin: 07/20/18 08:59 Dose: Not Given Sodium Chloride (Flush - Normal Saline) 10 ml IVF PRN PRN PRN Reason: Saline Flush Tamsulosin HCl (Flomax) 0.4 mg PO DAILY [facility] Last Admin: 07/20/18 08:58 Dose: 0.4 mg Tramadol HCl (Ultram) 50 mg PO Q6HR PRN PRN Reason: Moderate Pain (4-6)
[2018-07-20] MEDS ORDERED: Lactated Ringer's 1,000 ML IV SCH (18:15)
--- NOTE | 2018-07-20 18:19 | PDOC.EVN ---
Event Note - Event Note Event Note: 1:20-1:36 PM AM. Discussed with palliative care and with JERICHO Musa at [facility] in [place]. Updated re: medical issues. Code status remains DNAR. Hospice eval requested, will consult Hospice.
[2018-07-20] MEDS: Potassium Chloride 20 MEQ in Lactated Ringer's 1,000 ML IV SCH (20:34)
[2018-07-20] MEDS: Donepezil HCl 10 MG TAB PO SCH (20:34)
[2018-07-20] MEDS: Ketorolac Tromethamine 30 MG/ML VIAL IVP PRN (20:34)
[2018-07-21] MEDS: Tamsulosin HCl 0.4 MG CAP PO SCH (08:48)
[2018-07-21] MEDS: Potassium Chloride 10 MEQ TAB PO SCH (08:48)
[2018-07-21] MEDS: Bicalutamide 50 MG TAB PO SCH (08:48)
[2018-07-21] MEDS: Enoxaparin Sodium 40 MG/0.4 ML SYRINGE SC SCH (09:10)
[2018-07-21] MEDS: Potassium Chloride 20 MEQ in Lactated Ringer's 1,000 ML IV SCH (11:04)
[2018-07-21] MEDS: Ketorolac Tromethamine 30 MG/ML VIAL IVP PRN (11:12)
--- NOTE | 2018-07-21 11:43 | PDOC.PN ---
- Subjective Encounter Start Date: 07/21/18 Encounter Start Time: 08:00 Pt seen for followup re: bone metastases. Appears more comfortable today. Speaking short sentences but not consistently. Could not complete ROS. - Objective Resuscitation Status - Order Detail: 07/18/18 17:28 Resuscitation Status Routine Co-Sign Provider: Resuscitation Status: DNAR: NO Resuscitation Discussed with: per documentation MAR Reviewed: Yes Vital Signs & Weight: Vital Signs (12 hours) Temp Pulse Resp BP Pulse Ox 07/21/18 08:00 97.5 F L 73 20 163/94 H 99 Weight Admit Weight 129 lb 9.6 oz Weight 129 lb 9.6 oz I&O: 07/20/18 07/21/18 07/22/18 06:59 06:59 06:59 Output Total 600 Balance -600 Result Diagrams: 07/19/18 06:03 07/19/18 06:03 Additional Labs: Labs reviewed by me Phys Exam - Physical Examination Constitutional: NAD HEENT: moist MMs Neck: supple Respiratory: clear to auscultation bilateral Cardiovascular: RRR Gastrointestinal: soft Neurological: moves all 4 limbs Psychiatric: normal affect Dx/Plan (1) Bone metastases Code(s): C79.51 - SECONDARY MALIGNANT NEOPLASM OF BONE Status: Acute Comment : Likely from prostate cancer. Hospice consulted. (2) Prostate cancer Code(s): C61 - MALIGNANT NEOPLASM OF PROSTATE Status: Suspected Comment: with mets to bone. Hospice care consulted. (3) Fungus present in urine Code(s): B49 - UNSPECIFIED MYCOSIS Status: Acute Comment: No need to treat (4) Hypernatremia Code(s): E87.0 - HYPEROSMOLALITY AND HYPERNATREMIA Status: Acute Comment: Check labs today (5) Hypertension Code(s): I10 - ESSENTIAL (PRIMARY) HYPERTENSION Status: Chronic Comment: titrate antihypertensives as needed (6) Urinary retention Code(s): R33.9 - RETENTION OF URINE, UNSPECIFIED Status: Chronic Comment: s/ p Cheung (7) Alzheimer's dementia Code(s): G30.9 - ALZHEIMER'S DISEASE, UNSPECIFIED; F02.80 - DEMENTIA IN OTH DISEASES CLASSD ELSWHR W/O BEHAVRL DISTURB Status: Chronic - Plan * . Review of Systems - Medications/Allergies Allergies/Adverse Reactions: Allergies Allergy/AdvReac Type Severity Reaction Status Date / Time No Known Drug Allergies Allergy Verified 04/28/14 20:53 Medications: Current Medications Acetaminophen (Tylenol) 650 mg PO Q4H PRN PRN Reason: Headache/Fever/Mild Pain (1-3) Hydrocodone Bitart/Acetaminophen ([place] 5/325) 1 tab PO Q4H PRN PRN Reason: Pain Last Admin: 07/20/18 16:06 Dose: 1 tab Bicalutamide (Casodex) 50 mg PO DAILY [facility] Last Admin: 07/21/18 08:48 Dose: 50 mg Donepezil HCl (Aricept) 5 mg PO HS [facility] Last Admin: 07/20/18 20:34 Dose: 5 mg Enoxaparin Sodium (Lovenox) 40 mg SC 0900 [facility] Last Admin: 07/21/18 09:10 Dose: 40 mg Potassium Chloride 20 meq/ (Lactated Ringer's) 1,010 mls @ 75 mls/hr IV .[id number] [facility] Last Admin: 07/21/18 11:04 Dose: 1,010 mls Ketorolac Tromethamine (Toradol) 15 mg IVP Q6H PRN PRN Reason: Pain Stop: 07/25/18 17:55 Last Admin: 07/21/18 11:12 Dose: 15 mg Morphine Sulfate (Morphine) 4 mg SLOW IVP Q4H PRN PRN Reason: Pain Last Admin: 07/20/18 17:09 Dose: 4 mg Ondansetron HCl (Zofran Odt) 4 mg PO Q6H PRN PRN Reason: Nausea/Vomiting Ondansetron HCl (Zofran) 4 mg IVP Q6H PRN PRN Reason: Nausea/Vomiting Phenazopyridine HCl (Azo Standard) 195 mg PO TID PRN PRN Reason: Bladder Spasms Potassium Chloride (Klor-Con 10) 10 meq PO QAM-WM [facility] Last Admin: 07/21/18 08:48 Dose: 10 meq Sodium Chloride (Flush - Normal Saline) 10 ml IVF Q12HR [facility] Last Admin: 07/21/18 11:05 Dose: Not Given Sodium Chloride (Flush - Normal Saline) 10 ml IVF PRN PRN PRN Reason: Saline Flush Tamsulosin HCl (Flomax) 0.4 mg PO DAILY [facility] Last Admin: 07/21/18 08:48 Dose: 0.4 mg Tramadol HCl (Ultram) 50 mg PO Q6HR PRN PRN Reason: Moderate Pain (4-6)
[2018-07-21 12:11] LABS: #Eosinphils 0.1 thou/uL (0.0-0.7); #Lymphocytes 0.9 thou/uL (1.20-3.40); #Monocytes 0.3 thou/uL (0.11-0.59); #Neutrophils 10.7 thou/uL (1.40-6.50); %Basophils 0.1 % (0.0-1.0); %Lymphocytes 7.7 % (21.0-51.0); %Monocytes 2.5 % (0.0-10.0); %Neutrophils 88.7 % (42.0-75.0); Hemoglobin 8.1 g/dL (14.0-18.0); Mean Corpuscular HGB CONC 30.3 g/dL (32.0-36.0); Mean Corpuscular Hemoglobin 27.6 pg (27.0-31.0); Mean Corpuscular Volume 90.9 fL (78.0-98.0); Mean Platelet Volume 6.5 fL (7.4-10.4); Platelet Count 353 thou/uL (130-400); RBC Distribution Width 13.8 % (11.5-14.5); Red Blood Cell (RBC) Count 2.92 mill/uL (4.70-6.10); White Blood Cell (WBC) Count 12.1 thou/uL (4.8-10.8)
[2018-07-21 12:33] LABS: Anion Gap 10 mmol/L (10-20); BUN (Urea Nitrogen) 18 mg/dL (8.4-25.7); Calc. Creatinine Clearance 53 mL/min (70-130); Calcium 8.8 mg/dL (7.8-10.44); Carbon Dioxide 23 mmol/L (23-31); Chloride 118 mmol/L (98-107); Estimated GFR-MDRD 89; Glucose 109 mg/dL (83-110); Potassium 4.2 mmol/L (3.5-5.1); Sodium 147 mmol/L (136-145)
[2018-07-21] MEDS: Donepezil HCl 10 MG TAB PO SCH (20:18)
[2018-07-22] MEDS: Potassium Chloride 20 MEQ in Lactated Ringer's 1,000 ML IV SCH ×2 (00:22→13:21)
[2018-07-22 07:30] LABS: Anion Gap 13 mmol/L (10-20); BUN (Urea Nitrogen) 15 mg/dL (8.4-25.7); Calc. Creatinine Clearance 58 mL/min (70-130); Calcium 8.5 mg/dL (7.8-10.44); Carbon Dioxide 24 mmol/L (23-31); Chloride 114 mmol/L (98-107); Estimated GFR-MDRD Greater than 90; Glucose 74 mg/dL (83-110); Potassium 4.6 mmol/L (3.5-5.1); Sodium 146 mmol/L (136-145)
[2018-07-22 08:05] LABS: Band 3 % (5-11); Eosinophils 8 % (0-10); Hemoglobin 8.2 g/dL (14.0-18.0); Lymphocytes 17 % (21-51); MDiff Complete? YES; Mean Corpuscular HGB CONC 31.4 g/dL (32.0-36.0); Mean Corpuscular Hemoglobin 28.3 pg (27.0-31.0); Mean Corpuscular Volume 90.4 fL (78.0-98.0); Mean Platelet Volume 6.9 fL (7.4-10.4); Monocytes 1 % (0-10); Neutrophil 71 % (42-75); Platelet Count 331 thou/uL (130-400); RBC Distribution Width 13.8 % (11.5-14.5); White Blood Cell (WBC) Count 9.1 thou/uL (4.8-10.8)
[2018-07-22] MEDS: Bicalutamide 50 MG TAB PO SCH (09:54)
[2018-07-22] MEDS: Potassium Chloride 10 MEQ TAB PO SCH (09:54)
[2018-07-22] MEDS: Tamsulosin HCl 0.4 MG CAP PO SCH (09:54)
[2018-07-22] MEDS: Enoxaparin Sodium 40 MG/0.4 ML SYRINGE SC SCH (09:55)
--- NOTE | 2018-07-22 13:22 | PDOC.PN ---
- Subjective Encounter Start Date: 07/22/18 Encounter Start Time: 09:00 Pt seen for followup re: bone metastases. Pt more alert but nonverbal, unable to complete ROS. - Objective Resuscitation Status - Order Detail: 07/18/18 17:28 Resuscitation Status Routine Co-Sign Provider: Resuscitation Status: DNAR: NO Resuscitation Discussed with: per documentation MAR Reviewed: Yes Vital Signs & Weight: Vital Signs (12 hours) Temp Pulse Resp BP Pulse Ox 07/22/18 08:20 94 L 07/22/18 08:00 97.7 F 73 20 159/69 H 94 L Weight Admit Weight 129 lb 9.6 oz Weight 129 lb 9.6 oz I&O: 07/21/18 07/22/18 07/23/18 06:59 06:59 06:59 Intake Total 250 Output Total 625 Balance -375 Result Diagrams: 07/22/18 06:20 07/22/18 06:20 Additional Labs: labs reviewed by me Phys Exam - Physical Examination Constitutional: NAD HEENT: moist MMs Neck: supple Respiratory: no wheezing Cardiovascular: no rub Gastrointestinal: soft Neurological: moves all 4 limbs Psychiatric: normal affect Dx/Plan (1) Bone metastases Code(s): C79.51 - SECONDARY MALIGNANT NEOPLASM OF BONE Status: Acute Comment : Likely from prostate cancer. Await hospice input. (2) Prostate cancer Code(s): C61 - MALIGNANT NEOPLASM OF PROSTATE Status: Suspected Comment: Hospice care consulted. (3) Fungus present in urine Code(s): B49 - UNSPECIFIED MYCOSIS Status: Acute Comment: No need to treat (4) Hypernatremia Code(s): E87.0 - HYPEROSMOLALITY AND HYPERNATREMIA Status: Acute Comment: mild, sodium 146 (5) Hypertension Code(s): I10 - ESSENTIAL (PRIMARY) HYPERTENSION Status: Chronic Comment: start amlodipine (6) Urinary retention Code(s): R33.9 - RETENTION OF URINE, UNSPECIFIED Status: Chronic Comment: s/ p Cheung (7) Alzheimer's dementia Code(s): G30.9 - ALZHEIMER'S DISEASE, UNSPECIFIED; F02.80 - DEMENTIA IN OTH DISEASES CLASSD ELSWHR W/O BEHAVRL DISTURB Status: Chronic - Plan * . Review of Systems - Medications/Allergies Allergies/Adverse Reactions: Allergies Allergy/AdvReac Type Severity Reaction Status Date / Time No Known Drug Allergies Allergy Verified 04/28/14 20:53 Medications: Current Medications Acetaminophen (Tylenol) 650 mg PO Q4H PRN PRN Reason: Headache/Fever/Mild Pain (1-3) Hydrocodone Bitart/Acetaminophen ([place] 5/325) 1 tab PO Q4H PRN PRN Reason: Pain Last Admin: 07/20/18 16:06 Dose: 1 tab Bicalutamide (Casodex) 50 mg PO DAILY [facility] Last Admin: 07/22/18 09:54 Dose: 50 mg Donepezil HCl (Aricept) 5 mg PO HS [facility] Last Admin: 07/21/18 20:18 Dose: 5 mg Enoxaparin Sodium (Lovenox) 40 mg SC 0900 [facility] Last Admin: 07/22/18 09:55 Dose: 40 mg Potassium Chloride 20 meq/ (Lactated Ringer's) 1,010 mls @ 75 mls/hr IV .[id number] [facility] Last Admin: 07/22/18 13:21 Dose: 1,010 mls Ketorolac Tromethamine (Toradol) 15 mg IVP Q6H PRN PRN Reason: Pain Stop: 07/25/18 17:55 Last Admin: 07/21/18 11:12 Dose: 15 mg Morphine Sulfate (Morphine) 4 mg SLOW IVP Q4H PRN PRN Reason: Pain Last Admin: 07/20/18 17:09 Dose: 4 mg Ondansetron HCl (Zofran Odt) 4 mg PO Q6H PRN PRN Reason: Nausea/Vomiting Ondansetron HCl (Zofran) 4 mg IVP Q6H PRN PRN Reason: Nausea/Vomiting Phenazopyridine HCl (Azo Standard) 195 mg PO TID PRN PRN Reason: Bladder Spasms Potassium Chloride (Klor-Con 10) 10 meq PO QAM-WM [facility] Last Admin: 07/22/18 09:54 Dose: 10 meq Sodium Chloride (Flush - Normal Saline) 10 ml IVF Q12HR [facility] Last Admin: 07/22/18 09:55 Dose: Not Given Sodium Chloride (Flush - Normal Saline) 10 ml IVF PRN PRN PRN Reason: Saline Flush Tamsulosin HCl (Flomax) 0.4 mg PO DAILY [facility] Last Admin: 07/22/18 09:54 Dose: 0.4 mg Tramadol HCl (Ultram) 50 mg PO Q6HR PRN PRN Reason: Moderate Pain (4-6)
[2018-07-22] MEDS ORDERED: Amlodipine 5 MG TAB PO SCH (13:45)
[2018-07-22] MEDS: HYDROcodone/Acetaminophen 5/325 mg Tablet PO PRN (21:23)
[2018-07-22] MEDS: Donepezil HCl 10 MG TAB PO SCH (21:27)
[2018-07-23] MEDS: Potassium Chloride 20 MEQ in Lactated Ringer's 1,000 ML IV SCH ×2 (01:22→16:43)
[2018-07-23] MEDS: Ketorolac Tromethamine 30 MG/ML VIAL IVP PRN (01:22)
[2018-07-23 06:20] LABS: #Eosinphils 0.1 thou/uL (0.0-0.7); #Monocytes 0.3 thou/uL (0.11-0.59); #Neutrophils 8.6 thou/uL (1.40-6.50); %Basophils 0.2 % (0.0-1.0); %Eosinophils 1.1 % (0.0-10.0); %Lymphocytes 10.2 % (21.0-51.0); %Monocytes 3.3 % (0.0-10.0); %Neutrophils 85.2 % (42.0-75.0); Hemoglobin 8.9 g/dL (14.0-18.0); Mean Corpuscular HGB CONC 30.8 g/dL (32.0-36.0); Mean Corpuscular Hemoglobin 27.2 pg (27.0-31.0); Mean Corpuscular Volume 88.5 fL (78.0-98.0); Mean Platelet Volume 6.6 fL (7.4-10.4); Platelet Count 361 thou/uL (130-400); RBC Distribution Width 14.2 % (11.5-14.5); Red Blood Cell (RBC) Count 3.27 mill/uL (4.70-6.10); White Blood Cell (WBC) Count 10.1 thou/uL (4.8-10.8)
[2018-07-23 06:39] LABS: Anion Gap 12 mmol/L (10-20); BUN (Urea Nitrogen) 13 mg/dL (8.4-25.7); Calc. Creatinine Clearance 58 mL/min (70-130); Calcium 8.5 mg/dL (7.8-10.44); Carbon Dioxide 24 mmol/L (23-31); Chloride 111 mmol/L (98-107); Estimated GFR-MDRD Greater than 90; Glucose 93 mg/dL (83-110); Potassium 4.4 mmol/L (3.5-5.1); Sodium 143 mmol/L (136-145)
[2018-07-23] MEDS: Tamsulosin HCl 0.4 MG CAP PO SCH (09:09)
[2018-07-23] MEDS: Amlodipine 5 MG TAB PO SCH (09:09)
[2018-07-23] MEDS: Potassium Chloride 10 MEQ TAB PO SCH (09:09)
[2018-07-23] MEDS: traMADol HCl 50 MG TAB PO PRN (09:09)
[2018-07-23] MEDS: Enoxaparin Sodium 40 MG/0.4 ML SYRINGE SC SCH (09:12)
[2018-07-23] MEDS: Bicalutamide 50 MG TAB PO SCH (09:12)
--- NOTE | 2018-07-23 13:35 | PDOC.PN ---
- Subjective Encounter Start Date: 07/23/18 Encounter Start Time: 08:00 Pt seen for followup re: prostate cancer. Pt not answering quesions, unable to complete ROS. - Objective Resuscitation Status - Order Detail: 07/18/18 17:28 Resuscitation Status Routine Co-Sign Provider: Resuscitation Status: DNAR: NO Resuscitation Discussed with: per documentation MAR Reviewed: Yes Vital Signs & Weight: Vital Signs (12 hours) Temp Pulse Resp BP Pulse Ox 07/23/18 09:09 79 07/23/18 08:00 94 L 07/23/18 07:00 97.7 F 79 20 142/77 H 94 L 07/23/18 03:48 98.1 F 71 18 151/76 H 96 Weight Admit Weight 129 lb 9.6 oz Weight 129 lb 9.6 oz I&O: 07/22/18 07/23/18 07/24/18 06:59 06:59 06:59 Intake Total 250 1140 320 Output Total 625 700 Balance -375 440 320 Result Diagrams: 07/23/18 06:03 07/23/18 06:03 Additional Labs: Labs reviewed by me Phys Exam - Physical Examination Constitutional: NAD HEENT: oral pharynx no lesions Neck: no nodes Respiratory: no rales Cardiovascular: RRR Gastrointestinal: soft Neurological: moves all 4 limbs Psychiatric: normal affect Dx/Plan (1) Prostate cancer Code(s): C61 - MALIGNANT NEOPLASM OF PROSTATE Status: Suspected Comment: started on Casodex (2) Bone metastases Code(s): C79.51 - SECONDARY MALIGNANT NEOPLASM OF BONE Status: Acute Comment : Await hospice input. (3) Fungus present in urine Code(s): B49 - UNSPECIFIED MYCOSIS Status: Acute Comment: No need to treat (4) Hypertension Code(s): I10 - ESSENTIAL (PRIMARY) HYPERTENSION Status: Chronic Comment: Increase amlodipine dose (5) Urinary retention Code(s): R33.9 - RETENTION OF URINE, UNSPECIFIED Status: Chronic Comment: s/ p Cheung (6) Alzheimer's dementia Code(s): G30.9 - ALZHEIMER'S DISEASE, UNSPECIFIED; F02.80 - DEMENTIA IN OTH DISEASES CLASSD ELSWHR W/O BEHAVRL DISTURB Status: Chronic (7) Hypernatremia Code(s): E87.0 - HYPEROSMOLALITY AND HYPERNATREMIA Status: Resolved - Plan * . Review of Systems - Medications/Allergies Allergies/Adverse Reactions: Allergies Allergy/AdvReac Type Severity Reaction Status Date / Time No Known Drug Allergies Allergy Verified 04/28/14 20:53 Medications: Current Medications Acetaminophen (Tylenol) 650 mg PO Q4H PRN PRN Reason: Headache/Fever/Mild Pain (1-3) Hydrocodone Bitart/Acetaminophen ([place] 5/325) 1 tab PO Q4H PRN PRN Reason: Pain Last Admin: 07/22/18 21:23 Dose: 1 tab Amlodipine Besylate (Norvasc) 5 mg PO DAILY [facility] Last Admin: 07/23/18 09:09 Dose: 5 mg Bicalutamide (Casodex) 50 mg PO DAILY [facility] Last Admin: 07/23/18 09:12 Dose: 50 mg Donepezil HCl (Aricept) 5 mg PO HS [facility] Last Admin: 07/22/18 21:27 Dose: 5 mg Enoxaparin Sodium (Lovenox) 40 mg SC 0900 [facility] Last Admin: 07/23/18 09:12 Dose: 40 mg Potassium Chloride 20 meq/ (Lactated Ringer's) 1,010 mls @ 75 mls/hr IV .[id number] [facility] Last Admin: 07/23/18 01:22 Dose: 1,010 mls Ketorolac Tromethamine (Toradol) 15 mg IVP Q6H PRN PRN Reason: Pain Stop: 07/25/18 17:55 Last Admin: 07/23/18 01:22 Dose: 15 mg Morphine Sulfate (Morphine) 4 mg SLOW IVP Q4H PRN PRN Reason: Pain Last Admin: 07/20/18 17:09 Dose: 4 mg Ondansetron HCl (Zofran Odt) 4 mg PO Q6H PRN PRN Reason: Nausea/Vomiting Ondansetron HCl (Zofran) 4 mg IVP Q6H PRN PRN Reason: Nausea/Vomiting Phenazopyridine HCl (Azo Standard) 195 mg PO TID PRN PRN Reason: Bladder Spasms Potassium Chloride (Klor-Con 10) 10 meq PO QAM-WM [facility] Last Admin: 07/23/18 09:09 Dose: 10 meq Sodium Chloride (Flush - Normal Saline) 10 ml IVF Q12HR [facility] Last Admin: 07/23/18 09:12 Dose: Not Given Sodium Chloride (Flush - Normal Saline) 10 ml IVF PRN PRN PRN Reason: Saline Flush Tamsulosin HCl (Flomax) 0.4 mg PO DAILY [facility] Last Admin: 07/23/18 09:09 Dose: 0.4 mg Tramadol HCl (Ultram) 50 mg PO Q6HR PRN PRN Reason: Moderate Pain (4-6) Last Admin: 07/23/18 09:09 Dose: 50 mg
[2018-07-23] MEDS: Morphine 4 MG/ML VIAL SLOW IVP PRN (16:41)
[2018-07-23] MEDS ORDERED: risperiDONE 0.25 MG TAB PO SCH (16:45)
[2018-07-23] MEDS: Donepezil HCl 10 MG TAB PO SCH (20:22)
[2018-07-24] MEDS: Morphine 4 MG/ML VIAL SLOW IVP PRN (02:28)
[2018-07-24] MEDS: Potassium Chloride 20 MEQ in Lactated Ringer's 1,000 ML IV SCH ×2 (05:20→21:09)
[2018-07-24 06:51] LABS: Hemoglobin 7.7 g/dL (14.0-18.0); Mean Corpuscular Hemoglobin 27.6 pg (27.0-31.0); Mean Corpuscular Volume 89.1 fL (78.0-98.0); Mean Platelet Volume 6.7 fL (7.4-10.4); Platelet Count 328 thou/uL (130-400); Red Blood Cell (RBC) Count 2.77 mill/uL (4.70-6.10); White Blood Cell (WBC) Count 11.4 thou/uL (4.8-10.8)
[2018-07-24 07:07] LABS: Anion Gap 12 mmol/L (10-20); BUN (Urea Nitrogen) 14 mg/dL (8.4-25.7); Calc. Creatinine Clearance 55 mL/min (70-130); Calcium 8.3 mg/dL (7.8-10.44); Carbon Dioxide 24 mmol/L (23-31); Chloride 110 mmol/L (98-107); Estimated GFR-MDRD Greater than 90; Glucose 102 mg/dL (83-110); Potassium 4.1 mmol/L (3.5-5.1); Sodium 142 mmol/L (136-145)
[2018-07-24 07:32] LABS: Anisocytosis SLIGHT = 6-15 cells (100X) (0-5/hpf); Hypochromia SLIGHT = 6-15 cells (100X) (0-5/hpf); Lymphocytes 7 % (21-51); MDiff Complete? YES; Monocytes 3 % (0-10); Neutrophil 90 % (42-75); Platelet Morphology Comment Appears Adequate; Polychromasia SLIGHT = 2-3 cells (100X) (0-2/hpf)
[2018-07-24] MEDS: Tamsulosin HCl 0.4 MG CAP PO SCH (08:18)
[2018-07-24] MEDS: Potassium Chloride 10 MEQ TAB PO SCH (08:18)
[2018-07-24] MEDS: risperiDONE 0.25 MG TAB PO SCH (08:18)
[2018-07-24] MEDS: Amlodipine 5 MG TAB PO SCH (08:19)
[2018-07-24] MEDS: Enoxaparin Sodium 40 MG/0.4 ML SYRINGE SC SCH (08:19)
[2018-07-24] MEDS: Ketorolac Tromethamine 30 MG/ML VIAL IVP PRN (08:19)
[2018-07-24] MEDS: Bicalutamide 50 MG TAB PO SCH (08:20)
--- NOTE | 2018-07-24 16:54 | PDOC.PN ---
- Subjective Encounter Start Date: 07/24/18 Encounter Start Time: 08:40 Pt seen for followup re: prostate cancer. Pt nonverbal, unable to complete ROS. - Objective Resuscitation Status - Order Detail: 07/18/18 17:28 Resuscitation Status Routine Co-Sign Provider: Resuscitation Status: DNAR: NO Resuscitation Discussed with: per documentation Vital Signs & Weight: Vital Signs (12 hours) Temp Pulse Resp BP Pulse Ox 07/24/18 08:19 72 07/24/18 08:01 97.7 F 72 18 139/65 99 07/24/18 08:00 99 Weight Admit Weight 129 lb 9.6 oz Weight 129 lb 9.6 oz I&O: 07/23/18 07/24/18 07/25/18 06:59 06:59 06:59 Intake Total 1140 1750 360 Output Total 700 550 Balance 440 1200 360 Result Diagrams: 07/24/18 05:44 07/24/18 05:44 Additional Labs: labs reviewed by me Phys Exam - Physical Examination Constitutional: NAD HEENT: moist MMs Neck: supple Respiratory: clear to auscultation bilateral Cardiovascular: RRR Gastrointestinal: soft Neurological: moves all 4 limbs Psychiatric: normal affect Dx/Plan (1) Prostate cancer Code(s): C61 - MALIGNANT NEOPLASM OF PROSTATE Status: Suspected Comment: started on Casodex. Pt will likley need hospice care. 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 (2) Bone metastases Code(s): C79.51 - SECONDARY MALIGNANT NEOPLASM OF BONE Status: Acute Comment : Await hospice input. (3) Hypertension Code(s): I10 - ESSENTIAL (PRIMARY) HYPERTENSION Status: Chronic Comment: controlled (4) Urinary retention Code(s): R33.9 - RETENTION OF URINE, UNSPECIFIED Status: Chronic Comment: s/ p Cheung (5) Alzheimer's dementia Code(s): G30.9 - ALZHEIMER'S DISEASE, UNSPECIFIED; F02.80 - DEMENTIA IN OTH DISEASES CLASSD ELSWHR W/O BEHAVRL DISTURB Status: Chronic (6) Hypernatremia Code(s): E87.0 - HYPEROSMOLALITY AND HYPERNATREMIA Status: Resolved (7) Fungus present in urine Code(s): B49 - UNSPECIFIED MYCOSIS Status: Resolved - Plan * . Review of Systems - Medications/Allergies Allergies/Adverse Reactions: Allergies Allergy/AdvReac Type Severity Reaction Status Date / Time No Known Drug Allergies Allergy Verified 04/28/14 20:53 Medications: Current Medications Acetaminophen (Tylenol) 650 mg PO Q4H PRN PRN Reason: Headache/Fever/Mild Pain (1-3) Hydrocodone Bitart/Acetaminophen ([place] 5/325) 1 tab PO Q4H PRN PRN Reason: Pain Last Admin: 07/22/18 21:23 Dose: 1 tab Amlodipine Besylate (Norvasc) 5 mg PO DAILY [facility] Last Admin: 07/24/18 08:19 Dose: 5 mg Bicalutamide (Casodex) 50 mg PO DAILY [facility] Last Admin: 07/24/18 08:20 Dose: 50 mg Donepezil HCl (Aricept) 5 mg PO HS [facility] Last Admin: 07/23/18 20:22 Dose: 5 mg Enoxaparin Sodium (Lovenox) 40 mg SC 0900 [facility] Last Admin: 07/24/18 08:19 Dose: 40 mg Potassium Chloride 20 meq/ (Lactated Ringer's) 1,010 mls @ 75 mls/hr IV .[id number] [facility] Last Admin: 07/24/18 05:20 Dose: 1,010 mls Ketorolac Tromethamine (Toradol) 15 mg IVP Q6H PRN PRN Reason: Pain Stop: 07/25/18 17:55 Last Admin: 07/24/18 08:19 Dose: 15 mg Morphine Sulfate (Morphine) 4 mg SLOW IVP Q4H PRN PRN Reason: Pain Last Admin: 07/24/18 02:28 Dose: 4 mg Ondansetron HCl (Zofran Odt) 4 mg PO Q6H PRN PRN Reason: Nausea/Vomiting Ondansetron HCl (Zofran) 4 mg IVP Q6H PRN PRN Reason: Nausea/Vomiting Phenazopyridine HCl (Azo Standard) 195 mg PO TID PRN PRN Reason: Bladder Spasms Potassium Chloride (Klor-Con 10) 10 meq PO QAM-WM [facility] Last Admin: 07/24/18 08:18 Dose: 10 meq Risperidone (Risperidone) 0.5 mg PO DAILY [facility] Last Admin: 07/24/18 08:18 Dose: 0.5 mg Sodium Chloride (Flush - Normal Saline) 10 ml IVF Q12HR [facility] Last Admin: 07/24/18 08:20 Dose: Not Given Sodium Chloride (Flush - Normal Saline) 10 ml IVF PRN PRN PRN Reason: Saline Flush Tamsulosin HCl (Flomax) 0.4 mg PO DAILY [facility] Last Admin: 07/24/18 08:18 Dose: 0.4 mg Tramadol HCl (Ultram) 50 mg PO Q6HR PRN PRN Reason: Moderate Pain (4-6) Last Admin: 07/23/18 09:09 Dose: 50 mg
[2018-07-24] MEDS: Donepezil HCl 10 MG TAB PO SCH (21:11)
[2018-07-25] MEDS: Potassium Chloride 20 MEQ in Lactated Ringer's 1,000 ML IV SCH ×2 (05:58→12:48)
[2018-07-25] MEDS: risperiDONE 0.25 MG TAB PO SCH (09:01)
[2018-07-25] MEDS: Enoxaparin Sodium 40 MG/0.4 ML SYRINGE SC SCH (09:01)
[2018-07-25] MEDS: Tamsulosin HCl 0.4 MG CAP PO SCH (09:01)
[2018-07-25] MEDS: Bicalutamide 50 MG TAB PO SCH (09:01)
[2018-07-25] MEDS: Amlodipine 5 MG TAB PO SCH (09:01)
[2018-07-25] MEDS: Potassium Chloride 10 MEQ TAB PO SCH (09:01)
--- NOTE | 2018-07-25 12:05 | PDOC.PN ---
- Subjective Encounter Start Date: 07/25/18 Encounter Start Time: 10:30 Patient seen for follow up re: prostate cancer. Patient nonverbal, unable to voice complaints or answer my questions. No new events per nursing staff - Objective Resuscitation Status - Order Detail: 07/18/18 17:28 Resuscitation Status Routine Co-Sign Provider: Resuscitation Status: DNAR: NO Resuscitation Discussed with: per documentation Vital Signs & Weight: Vital Signs (12 hours) Temp Pulse Resp BP BP Pulse Ox 07/25/18 09:01 71 150/79 H 07/25/18 08:00 98.0 F 71 18 150/79 H 98 Weight Admit Weight 129 lb 9.6 oz Weight 129 lb 9.6 oz I&O: 07/24/18 07/25/18 07/26/18 06:59 06:59 06:59 Intake Total 1750 1295 Output Total 550 650 Balance 1200 645 Result Diagrams: 07/26/18 06:04 07/26/18 06:04 Phys Exam - Physical Examination Constitutional: NAD HEENT: moist MMs Neck: supple Respiratory: clear to auscultation bilateral Cardiovascular: RRR Gastrointestinal: soft, non-tender Musculoskeletal: no edema Neurological: moves all 4 limbs Deviation from normal: Not able to voice orientation Deviation from normal: no new rash Dx/Plan (1) Bone metastases Code(s): C79.51 - SECONDARY MALIGNANT NEOPLASM OF BONE Status: Acute Comment : Await hospice input. (2) Prostate cancer Code(s): C61 - MALIGNANT NEOPLASM OF PROSTATE Status: Suspected Comment: started on Casodex. Pt will likley need hospice care. 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 (3) Fungus present in urine Code(s): B49 - UNSPECIFIED MYCOSIS Status: Resolved (4) Alzheimer's dementia Code(s): G30.9 - ALZHEIMER'S DISEASE, UNSPECIFIED; F02.80 - DEMENTIA IN OTH DISEASES CLASSD ELSWHR W/O BEHAVRL DISTURB Status: Chronic (5) Hypertension Code(s): I10 - ESSENTIAL (PRIMARY) HYPERTENSION Status: Chronic Comment: controlled (6) Urinary retention Code(s): R33.9 - RETENTION OF URINE, UNSPECIFIED Status: Chronic Comment: s/ p Cheung (7) Anemia Code(s): D64.9 - ANEMIA, UNSPECIFIED Status: Acute Comment: Hg 7.7 on . Represents downward trend, baseline chronic anemia, like to due cancer. Order lab for 07/26. No clinical blood loss evident. - Plan * Discussed with social psychologist and interdisciplinary team. Hospital policy to be reviewed to better under next steps for guardianship/medical decision making. Goal of hospice care at assisted.
[2018-07-25] MEDS: Donepezil HCl 10 MG TAB PO SCH (19:59)
[2018-07-26] MEDS: Morphine 4 MG/ML VIAL SLOW IVP PRN ×4 (00:06→17:43)
[2018-07-26] MEDS: Potassium Chloride 20 MEQ in Lactated Ringer's 1,000 ML IV SCH ×2 (02:01→17:38)
[2018-07-26 06:47] LABS: #Eosinphils 0.1 thou/uL (0.0-0.7); #Lymphocytes 1.2 thou/uL (1.20-3.40); #Monocytes 0.5 thou/uL (0.11-0.59); #Neutrophils 8.9 thou/uL (1.40-6.50); %Basophils 0.1 % (0.0-1.0); %Eosinophils 0.9 % (0.0-10.0); %Lymphocytes 11.2 % (21.0-51.0); %Monocytes 4.6 % (0.0-10.0); %Neutrophils 83.2 % (42.0-75.0); Hemoglobin 7.5 g/dL (14.0-18.0); Mean Corpuscular HGB CONC 30.9 g/dL (32.0-36.0); Mean Corpuscular Volume 90.6 fL (78.0-98.0); Mean Platelet Volume 7.7 fL (7.4-10.4); Platelet Count 207 thou/uL (130-400); RBC Distribution Width 15.5 % (11.5-14.5); Red Blood Cell (RBC) Count 2.68 mill/uL (4.70-6.10); White Blood Cell (WBC) Count 10.8 thou/uL (4.8-10.8)
[2018-07-26 06:54] LABS: Anion Gap 13 mmol/L (10-20); BUN (Urea Nitrogen) 12 mg/dL (8.4-25.7); Calc. Creatinine Clearance 61 mL/min (70-130); Calcium 7.9 mg/dL (7.8-10.44); Carbon Dioxide 21 mmol/L (23-31); Chloride 109 mmol/L (98-107); Estimated GFR-MDRD Greater than 90; Glucose 142 mg/dL (83-110); Potassium 4.7 mmol/L (3.5-5.1); Sodium 138 mmol/L (136-145)
[2018-07-26] MEDS: Amlodipine 5 MG TAB PO SCH (09:37)
[2018-07-26] MEDS: risperiDONE 0.25 MG TAB PO SCH (09:37)
[2018-07-26] MEDS: Potassium Chloride 10 MEQ TAB PO SCH (09:37)
[2018-07-26] MEDS: Enoxaparin Sodium 40 MG/0.4 ML SYRINGE SC SCH (09:37)
[2018-07-26] MEDS: Tamsulosin HCl 0.4 MG CAP PO SCH (09:38)
[2018-07-26] MEDS: Bicalutamide 50 MG TAB PO SCH (12:54)
--- NOTE | 2018-07-26 20:11 | PDOC.PN ---
- Subjective Encounter Start Date: 07/26/18 Encounter Start Time: 11:00 Patient seen and examined for metastatic prostate Ca. Appears comfortable. No overnight events - Objective Resuscitation Status - Order Detail: 07/18/18 17:28 Resuscitation Status Routine Co-Sign Provider: Resuscitation Status: DNAR: NO Resuscitation Discussed with: per documentation MAR Reviewed: Yes Vital Signs & Weight: Vital Signs (12 hours) Temp Pulse Resp BP BP Pulse Ox 07/26/18 19:44 97.8 F 86 18 161/79 H 96 07/26/18 09:37 72 144/72 H Weight Admit Weight 129 lb 9.6 oz Weight 129 lb 9.6 oz I&O: 07/25/18 07/26/18 07/27/18 06:59 06:59 06:59 Intake Total 1295 950 Output Total 650 525 Balance 645 425 Result Diagrams: 07/26/18 06:04 07/26/18 06:04 Phys Exam - Physical Examination Constitutional: NAD Respiratory: no wheezing, no rhonchi Cardiovascular: RRR Gastrointestinal: soft, non-tender, positive bowel sounds Musculoskeletal: no edema Dx/Plan - Plan DVT proph w/SCDs 1. Metastatic Prostate Ca 2. Alzheimers dementia 3. Dehydration/Hypernatremia 4. BPH 5. Moderate PEM 6. Chronic Anemia PLAN: Change IVF to D51/2 NS Cont Casodex DC PO KCL Await hospice eval Cont Flomax Review of Systems - Review of Systems Respiratory: negative: Cough, Dry, Shortness of Breath, Hemoptysis, SOB with Excertion, Pleuritic Pain, Sputum, Wheezing Cardiovascular: negative: chest pain, palpitations, orthopnea, paroxysmal nocturnal dyspnea, edema, light headedness, other - Medications/Allergies Allergies/Adverse Reactions: Allergies Allergy/AdvReac Type Severity Reaction Status Date / Time No Known Drug Allergies Allergy Verified 04/28/14 20:53 Medications: Current Medications Acetaminophen (Tylenol) 650 mg PO Q4H PRN PRN Reason: Headache/Fever/Mild Pain (1-3) Amlodipine Besylate (Norvasc) 5 mg PO DAILY [facility] Last Admin: 07/26/18 09:37 Dose: 5 mg Bicalutamide (Casodex) 50 mg PO DAILY [facility] Last Admin: 07/26/18 12:54 Dose: Not Given Donepezil HCl (Aricept) 5 mg PO HS [facility] Last Admin: 07/25/18 19:59 Dose: 5 mg Enoxaparin Sodium (Lovenox) 40 mg SC 0900 [facility] Last Admin: 07/26/18 09:37 Dose: 40 mg Dextrose/Sodium Chloride (D5 1/2 Ns) 1,000 mls @ 50 mls/hr IV .Q20H [facility] Ondansetron HCl (Zofran Odt) 4 mg PO Q6H PRN PRN Reason: Nausea/Vomiting Ondansetron HCl (Zofran) 4 mg IVP Q6H PRN PRN Reason: Nausea/Vomiting Phenazopyridine HCl (Azo Standard) 195 mg PO TID PRN PRN Reason: Bladder Spasms Risperidone (Risperidone) 0.5 mg PO DAILY [facility] Last Admin: 07/26/18 09:37 Dose: 0.5 mg Sodium Chloride (Flush - Normal Saline) 10 ml IVF Q12HR [facility] Last Admin: 07/26/18 09:38 Dose: Not Given Sodium Chloride (Flush - Normal Saline) 10 ml IVF PRN PRN PRN Reason: Saline Flush Tamsulosin HCl (Flomax) 0.4 mg PO DAILY [facility] Last Admin: 07/26/18 09:38 Dose: 0.4 mg Tramadol HCl (Ultram) 50 mg PO Q6HR PRN PRN Reason: Moderate Pain (4-6) Last Admin: 07/23/18 09:09 Dose: 50 mg
[2018-07-26] MEDS: Donepezil HCl 10 MG TAB PO SCH (21:53)
[2018-07-26] MEDS: Dextrose 5 %-0.45 % NaCl 1,000 ML IV SCH (22:42)
[2018-07-26] MEDS: traMADol HCl 50 MG TAB PO PRN (23:58)
[2018-07-27] MEDS: Bicalutamide 50 MG TAB PO SCH (09:18)
[2018-07-27] MEDS: risperiDONE 0.25 MG TAB PO SCH (09:19)
[2018-07-27] MEDS: Tamsulosin HCl 0.4 MG CAP PO SCH (09:19)
[2018-07-27] MEDS: Enoxaparin Sodium 40 MG/0.4 ML SYRINGE SC SCH (09:21)
[2018-07-27] MEDS: Cyanocobalamin (Vitamin B-12) 1,000 MCG TAB PO SCH (09:21)
[2018-07-27] MEDS: Folic Acid 1 MG TAB PO SCH (09:21)
[2018-07-27] MEDS: Multivit, Therapeutic 1 TAB PO SCH (09:21)
[2018-07-27] MEDS: Amlodipine 5 MG TAB PO SCH (09:21)
--- NOTE | 2018-07-27 13:16 | PDOC.PN ---
- Subjective Encounter Start Date: 07/27/18 Encounter Start Time: 12:30 Patient seen and examined for Prostate Ca. No new complaints. No overnight events - Objective Resuscitation Status - Order Detail: 07/18/18 17:28 Resuscitation Status Routine Co-Sign Provider: Resuscitation Status: DNAR: NO Resuscitation Discussed with: per documentation MAR Reviewed: Yes Vital Signs & Weight: Vital Signs (12 hours) Temp Pulse Resp BP Pulse Ox 07/27/18 09:21 80 07/27/18 07:51 98.3 F 73 18 157/90 H 85 L Weight Admit Weight 129 lb 9.6 oz Weight 129 lb 9.6 oz I&O: 07/26/18 07/27/18 07/28/18 06:59 06:59 06:59 Intake Total 950 600 250 Output Total 525 950 Balance 425 -350 250 Result Diagrams: 07/26/18 06:04 07/26/18 06:04 Phys Exam - Physical Examination Constitutional: NAD Respiratory: no wheezing, no rhonchi Cardiovascular: RRR, no rub Gastrointestinal: soft, non-tender, positive bowel sounds Musculoskeletal: no edema Dx/Plan - Plan DVT proph w/lovenox, DVT proph w/SCDs 1. Metastatic Prostate Ca 2. Alzheimers dementia 3. Dehydration/Hypernatremia 4. BPH 5. Moderate PEM 6. Chronic Anemia PLAN: Cont IVF Cont Casodex/Flomax Await hospice eval Reduce Lovenox to 30 mg daily AM labs Review of Systems - Review of Systems Other: Cannot be reliably obtained due to current mentation - Medications/Allergies Allergies/Adverse Reactions: Allergies Allergy/AdvReac Type Severity Reaction Status Date / Time No Known Drug Allergies Allergy Verified 04/28/14 20:53 Medications: Current Medications Acetaminophen (Tylenol) 650 mg PO Q4H PRN PRN Reason: Headache/Fever/Mild Pain (1-3) Amlodipine Besylate (Norvasc) 5 mg PO DAILY [facility] Last Admin: 07/27/18 09:21 Dose: 5 mg Bicalutamide (Casodex) 50 mg PO DAILY [facility] Last Admin: 07/27/18 09:18 Dose: 50 mg Cyanocobalamin (Vitamin B-12) 1,000 mcg PO DAILY [facility] Last Admin: 07/27/18 09:21 Dose: 1,000 mcg Donepezil HCl (Aricept) 5 mg PO HS [facility] Last Admin: 07/26/18 21:53 Dose: 5 mg Enoxaparin Sodium (Lovenox) 30 mg SC 0900 [facility] Folic Acid (Folvite) 1 mg PO DAILY [facility] Last Admin: 07/27/18 09:21 Dose: 1 mg Dextrose/Sodium Chloride (D5 /2 Ns) 1,000 mls @ 50 mls/hr IV .Q20H [facility] Last Admin: 07/26/18 22:42 Dose: 1,000 mls Multivitamins (Theragran) 1 tab PO DAILY [facility] Last Admin: 07/27/18 09:21 Dose: 1 tab Ondansetron HCl (Zofran Odt) 4 mg PO Q6H PRN PRN Reason: Nausea/Vomiting Ondansetron HCl (Zofran) 4 mg IVP Q6H PRN PRN Reason: Nausea/Vomiting Phenazopyridine HCl (Azo Standard) 195 mg PO TID PRN PRN Reason: Bladder Spasms Risperidone (Risperidone) 0.5 mg PO DAILY [facility] Last Admin: 07/27/18 09:19 Dose: 0.5 mg Sodium Chloride (Flush - Normal Saline) 10 ml IVF Q12HR [facility] Last Admin: 07/27/18 09:20 Dose: Not Given Sodium Chloride (Flush - Normal Saline) 10 ml IVF PRN PRN PRN Reason: Saline Flush Tamsulosin HCl (Flomax) 0.4 mg PO DAILY [facility] Last Admin: 07/27/18 09:19 Dose: 0.4 mg Tramadol HCl (Ultram) 50 mg PO Q6HR PRN PRN Reason: Moderate Pain (4-6) Last Admin: 07/26/18 23:58 Dose: 50 mg
[2018-07-27] MEDS: Dextrose 5 %-0.45 % NaCl 1,000 ML IV SCH (17:53)
[2018-07-27] MEDS: Donepezil HCl 10 MG TAB PO SCH (21:11)
[2018-07-28 08:10] LABS: Hemoglobin 7.8 g/dL (14.0-18.0); Platelet Count 305 thou/uL (130-400)
[2018-07-28 08:26] LABS: Anion Gap 12 mmol/L (10-20); BUN (Urea Nitrogen) 10 mg/dL (8.4-25.7); Calc. Creatinine Clearance 63 mL/min (70-130); Calcium 7.9 mg/dL (7.8-10.44); Carbon Dioxide 22 mmol/L (23-31); Chloride 103 mmol/L (98-107); Estimated GFR-MDRD Greater than 90; Glucose 124 mg/dL (83-110); Magnesium 1.3 mg/dL (1.6-2.6); Phosphorus 2.9 mg/dL (2.3-4.7); Potassium 3.3 mmol/L (3.5-5.1); Sodium 134 mmol/L (136-145)
[2018-07-28] MEDS: Tamsulosin HCl 0.4 MG CAP PO SCH (08:34)
[2018-07-28] MEDS: risperiDONE 0.25 MG TAB PO SCH (08:37)
[2018-07-28] MEDS: Multivit, Therapeutic 1 TAB PO SCH (08:37)
[2018-07-28] MEDS: Bicalutamide 50 MG TAB PO SCH (08:37)
[2018-07-28] MEDS: Folic Acid 1 MG TAB PO SCH (08:38)
[2018-07-28] MEDS: Cyanocobalamin (Vitamin B-12) 1,000 MCG TAB PO SCH (08:38)
[2018-07-28] MEDS: Amlodipine 5 MG TAB PO SCH (08:41)
[2018-07-28] MEDS: Dextrose 5 %-0.45 % NaCl 1,000 ML IV SCH (08:46)
[2018-07-28] MEDS: Enoxaparin Sodium 30 MG/0.3 ML SYRINGE SC SCH (08:47)
--- NOTE | 2018-07-28 12:49 | PDOC.PN ---
- Subjective Encounter Start Date: 07/28/18 Encounter Start Time: 12:47 Patient seen and examined, all questions answered, no family at bedside. - Objective Resuscitation Status - Order Detail: 07/18/18 17:28 Resuscitation Status Routine Co-Sign Provider: Resuscitation Status: DNAR: NO Resuscitation Discussed with: per documentation Vital Signs & Weight: Vital Signs (12 hours) Temp Pulse Resp BP Pulse Ox 07/28/18 08:41 81 07/28/18 07:34 97.6 F 81 16 190/73 H 91 L Weight Admit Weight 129 lb 9.6 oz Weight 129 lb 9.6 oz I&O: 07/27/18 07/28/18 07/29/18 06:59 06:59 06:59 Intake Total 600 1200 Output Total 950 1000 Balance -350 200 Result Diagrams: 07/28/18 07:33 07/28/18 07:33 Phys Exam - Physical Examination Constitutional: NAD HEENT: PERRLA, moist MMs, sclera anicteric Neck: no nodes, no JVD, supple Respiratory: no wheezing, no rales, no rhonchi Cardiovascular: RRR, no rub systolic ejection murmur Gastrointestinal: soft, non-tender, no distention Musculoskeletal: no edema, pulses present Dx/Plan (1) Anemia Code(s): D64.9 - ANEMIA, UNSPECIFIED Status: Acute Comment: Hg 7.7 on . Represents downward trend, baseline chronic anemia, like to due cancer. Order lab for 07/26. No clinical blood loss evident. (2) Bone metastases Code(s): C79.51 - SECONDARY MALIGNANT NEOPLASM OF BONE Status: Acute Comment : Await hospice input. (3) Prostate cancer Code(s): C61 - MALIGNANT NEOPLASM OF PROSTATE Status: Suspected Comment: started on Casodex. Pt will likley need hospice care. 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 (4) Adult failure to thrive Status: Acute (5) Dementia Code(s): F03.90 - UNSPECIFIED DEMENTIA WITHOUT BEHAVIORAL DISTURBANCE Status: Chronic - Plan * cont current plan of care * pending hospice evaluation and placmeent * no family at bedside.
[2018-07-28] MEDS: Donepezil HCl 10 MG TAB PO SCH (20:12)
[2018-07-29] MEDS: Dextrose 5 %-0.45 % NaCl 1,000 ML IV SCH (04:39)
[2018-07-29] MEDS: traMADol HCl 50 MG TAB PO PRN (08:39)
[2018-07-29] MEDS: Amlodipine 5 MG TAB PO SCH (08:40)
[2018-07-29] MEDS: Cyanocobalamin (Vitamin B-12) 1,000 MCG TAB PO SCH (08:40)
[2018-07-29] MEDS: Folic Acid 1 MG TAB PO SCH (08:40)
[2018-07-29] MEDS: Tamsulosin HCl 0.4 MG CAP PO SCH (08:40)
[2018-07-29] MEDS: Enoxaparin Sodium 30 MG/0.3 ML SYRINGE SC SCH (08:41)
[2018-07-29] MEDS: risperiDONE 0.25 MG TAB PO SCH (08:41)
[2018-07-29] MEDS: Multivit, Therapeutic 1 TAB PO SCH (08:42)
[2018-07-29] MEDS: Bicalutamide 50 MG TAB PO SCH (08:46)
--- NOTE | 2018-07-29 14:55 | PDOC.PN ---
- Subjective Encounter Start Date: 07/29/18 Encounter Start Time: 14:53 Patient seen and examined, no new issues. - Objective Resuscitation Status - Order Detail: 07/18/18 17:28 Resuscitation Status Routine Co-Sign Provider: Resuscitation Status: DNAR: NO Resuscitation Discussed with: per documentation Vital Signs & Weight: Vital Signs (12 hours) Temp Pulse Resp BP Pulse Ox 07/29/18 08:40 70 07/29/18 08:00 97.9 F 70 20 138/59 L 94 L Weight Admit Weight 129 lb 9.6 oz Weight 129 lb 9.6 oz I&O: 07/28/18 07/29/18 07/30/18 06:59 06:59 06:59 Intake Total 1200 700 Output Total 1000 850 750 Balance 200 -150 -750 Result Diagrams: 07/28/18 07:33 07/28/18 07:33 Phys Exam - Physical Examination Constitutional: NAD HEENT: PERRLA, moist MMs, sclera anicteric Neck: no nodes, no JVD, supple Respiratory: no wheezing, no rales, no rhonchi Cardiovascular: RRR, no significant murmur, no rub Gastrointestinal: soft, non-tender, no distention Musculoskeletal: no edema, pulses present Dx/Plan (1) Anemia Code(s): D64.9 - ANEMIA, UNSPECIFIED Status: Acute Comment: Hg 7.7 on . Represents downward trend, baseline chronic anemia, like to due cancer. Order lab for 07/26. No clinical blood loss evident. (2) Bone metastases Code(s): C79.51 - SECONDARY MALIGNANT NEOPLASM OF BONE Status: Acute Comment : Await hospice input. (3) Prostate cancer Code(s): C61 - MALIGNANT NEOPLASM OF PROSTATE Status: Suspected Comment: started on Casodex. Pt will likley need hospice care. 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 (4) Adult failure to thrive Status: Acute (5) Dementia Code(s): F03.90 - UNSPECIFIED DEMENTIA WITHOUT BEHAVIORAL DISTURBANCE Status: Chronic - Plan * pending placement * no family at bedside * cont current plan of care * DC once arrangements made
[2018-07-29] MEDS: Donepezil HCl 10 MG TAB PO SCH (20:55)
[2018-07-30] MEDS: traMADol HCl 50 MG TAB PO PRN (00:22)
--- NOTE | 2018-07-30 08:55 | PDOC.PN ---
- Subjective Encounter Start Date: 07/30/18 Encounter Start Time: 08:54 Patient seen and examined, no new issues. - Objective Resuscitation Status - Order Detail: 07/18/18 17:28 Resuscitation Status Routine Co-Sign Provider: Resuscitation Status: DNAR: NO Resuscitation Discussed with: per documentation Vital Signs & Weight: Vital Signs (12 hours) Pulse Ox 07/29/18 20:55 82 L Weight Admit Weight 129 lb 9.6 oz Weight 129 lb 9.6 oz I&O: 07/29/18 07/30/18 07/31/18 06:59 06:59 06:59 Intake Total 700 200 Output Total 850 1400 Balance -150 -1200 Result Diagrams: 07/28/18 07:33 07/28/18 07:33 Phys Exam - Physical Examination Constitutional: NAD HEENT: PERRLA, moist MMs, sclera anicteric Neck: no nodes, no JVD, supple Respiratory: no wheezing, no rales, no rhonchi Cardiovascular: RRR, no significant murmur, no rub Gastrointestinal: soft, non-tender, no distention Musculoskeletal: no edema, pulses present Dx/Plan (1) Anemia Code(s): D64.9 - ANEMIA, UNSPECIFIED Status: Acute Comment: Hg 7.7 on . Represents downward trend, baseline chronic anemia, like to due cancer. Order lab for 07/26. No clinical blood loss evident. (2) Bone metastases Code(s): C79.51 - SECONDARY MALIGNANT NEOPLASM OF BONE Status: Acute Comment : Await hospice input. (3) Prostate cancer Code(s): C61 - MALIGNANT NEOPLASM OF PROSTATE Status: Suspected Comment: started on [employer]. Pt will likley need hospice care. manager production trying to locate relatives. (4) Adult failure to thrive Status: Acute (5) Dementia Code(s): F03.90 - UNSPECIFIED DEMENTIA WITHOUT BEHAVIORAL DISTURBANCE Status: Chronic - Plan * pending placement * no family at bedside * cont current plan of care * DC once arrangements made
[2018-07-30] MEDS: Enoxaparin Sodium 30 MG/0.3 ML SYRINGE SC SCH (09:32)
[2018-07-30] MEDS: risperiDONE 0.25 MG TAB PO SCH (09:32)
[2018-07-30] MEDS: Multivit, Therapeutic 1 TAB PO SCH (09:33)
[2018-07-30] MEDS: Folic Acid 1 MG TAB PO SCH (09:33)
[2018-07-30] MEDS: Tamsulosin HCl 0.4 MG CAP PO SCH (09:33)
[2018-07-30] MEDS: Bicalutamide 50 MG TAB PO SCH (09:33)
[2018-07-30] MEDS: Cyanocobalamin (Vitamin B-12) 1,000 MCG TAB PO SCH (09:33)
[2018-07-30] MEDS: Amlodipine 5 MG TAB PO SCH (09:33)
[2018-07-30] MEDS: Donepezil HCl 10 MG TAB PO SCH (20:31)
[2018-07-31] MEDS: Bicalutamide 50 MG TAB PO SCH (09:03)
[2018-07-31] MEDS: traMADol HCl 50 MG TAB PO PRN (09:05)
[2018-07-31] MEDS: Enoxaparin Sodium 30 MG/0.3 ML SYRINGE SC SCH (09:06)
[2018-07-31] MEDS: Folic Acid 1 MG TAB PO SCH (09:06)
[2018-07-31] MEDS: Amlodipine 5 MG TAB PO SCH (09:06)
[2018-07-31] MEDS: Cyanocobalamin (Vitamin B-12) 1,000 MCG TAB PO SCH (09:06)
[2018-07-31] MEDS: Tamsulosin HCl 0.4 MG CAP PO SCH (09:07)
[2018-07-31] MEDS: risperiDONE 0.25 MG TAB PO SCH (09:07)
[2018-07-31] MEDS: Multivit, Therapeutic 1 TAB PO SCH (09:07)
[2018-07-31] MEDS ORDERED: Magnesium 2 GM/50 ML 2 GM in Premix Bag 1 BAG IVPB SCH (10:15)
[2018-07-31] MEDS ORDERED: Piperacillin/Tazobactam 4.5 GM in Sodium Chloride 0.9% 100 ML IVPB SCH (12:00)
[2018-07-31 14:04] LABS: Anion Gap 13 mmol/L (10-20); BUN (Urea Nitrogen) 12 mg/dL (8.4-25.7); Calc. Creatinine Clearance 68 mL/min (70-130); Carbon Dioxide 27 mmol/L (23-31); Chloride 102 mmol/L (98-107); Estimated GFR-MDRD Greater than 90; Glucose 145 mg/dL (83-110); Potassium 3.5 mmol/L (3.5-5.1); Sodium 138 mmol/L (136-145)
[2018-07-31 17:51] VITALS: BP 113/65; TEMP 97.7
== END 2018-07-31 16:20 | disposition hospice, inpatient (51) | DRG 722 ==
LOC: ERS 14:11 → T4-A 21:09 → OBSVTOIN 07-18 16:51
PROVIDERS: ADMIT Emergency Medicine; ATTEND Emergency Medicine
DX: C61 Malignant neoplasm of prostate (principal); L89.153 Pressure ulcer of sacral region, stage 3; N39.0 Urinary tract infection, site not specified; C79.51 Secondary malignant neoplasm of bone; E87.0 Hyperosmolality and hypernatremia; E87.3 Alkalosis; B49 Unspecified mycosis; E44.0 Moderate protein-calorie malnutrition; Z66 Do not resuscitate; R73.9 Hyperglycemia, unspecified; G30.9 Alzheimer's disease, unspecified; F02.80 Dementia in other diseases classified elsewhere, unspecified severity, without behavioral disturbance, psychotic disturbance, mood disturbance, and anxiety; I10 Essential (primary) hypertension; E86.0 Dehydration; M19.90 Unspecified osteoarthritis, unspecified site; N43.3 Hydrocele, unspecified; R13.10 Dysphagia, unspecified; R33.9 Retention of urine, unspecified; D63.0 Anemia in neoplastic disease; Z95.0 Presence of cardiac pacemaker; Z79.899 Other long term (current) drug therapy; Z68.20 Body mass index [BMI] 20.0-20.9, adult
CPT/HCPCS: 36415; 71045; 71260; 74177; 76870; 80048; 80053; 81003; 81015; 83605; 83735; 84100; 84153; 85014; 85018; 85025; 85049; 85610; 85730; 87086; 93976; 96365; 96375; J0696; J1650; J1885; J2270; J3475; J3480; J7050; J7120; Q9966